=== PATIENT | female | born 1935 | race Caucasian/White ===

== ENCOUNTER → 2019-09-02 | Outpatient (CLI) | payer MEDICARE, OTHER ==
[2019-09-02 11:02] LABS: HCT 44.4 % (34.0-46.0); HGB 14.2 gm/dL (11.4-16.0); MCH 32.5 pg (25.0-35.0); MCV 101.5 fL (80.0-100.0); Mean Platelet Volume 7.8; Platelet Count 244 k/uL (150-450); RBC 4.37 m/uL (3.80-5.40); RDW 12.7 % (11.5-15.5); WBC 8.9 k/uL (3.8-10.6)
[2019-09-02 11:08] LABS: Appearance,Urine Clear (Clear); Bilirubin,Urine Negative (Negative); Blood,Urine Negative (Negative); Color,Urine Yellow; Glucose,Urine (UA) 4+ (Negative); Ketones,Urine Negative (Negative); Leukocyte Esterase,Urine Negative (Negative); Nitrite,Urine Negative (Negative); PH, Urine 5.5 (5.0-8.0); Protein,Urine Negative (Negative); Specific Gravity,Urine 1.018 (1.001-1.035); Urobilinogen,Urine <2.0 mg/dL (<2.0)
[2019-09-02 11:10] LABS: INR 1.1 (<1.2); Partial Thromboplastin Time 28.6 sec (22.0-30.0)
[2019-09-02 18:49] LABS: African American GFR (CKD) 94.2 (60.0-200.0); Albumin 4.2 g/dL (3.80-4.90); Albumin/Globulin Ratio 1.62 (1.60-3.17); Anion Gap 20.7 mmol/L (4.00-12.00); BUN/Creat Ratio 32.86 Ratio (12.00-20.00); Calcium 9.8 mg/dL (8.7-10.3); Carbon Dioxide 23.3 mmol/L (21.6-31.8); Globulin 2.6 g/dL (1.6-3.3); Non-African American GFR(CKD) 81.3 (60.0-200.0); Potassium 4.3 mmol/L (3.5-5.5); Total Protein 6.8 g/dL (6.2-8.2)
== END | disposition home or self-care (01) ==
LOC: LABWHC1 10:13
PROVIDERS: ATTEND Orthopaedic Surgery
DX: Z01.818 Encounter for other preprocedural examination (principal); Z01.812 Encounter for preprocedural laboratory examination
CPT/HCPCS: 36415; 80053; 81003; 85027; 85610; 85730; 87070; 87635

== ENCOUNTER 2019-09-05 11:14 | Day surgery (SDC) | payer MEDICARE ==
[2019-09-03 11:17] VITALS: BMI 27.1
[~2019-09-05 11:14] MED LIST: ACETAMINOPHEN TAB 500 MG TAB PO ONE; GABAPENTIN 300 MG CAP PO ONE; MELOXICAM 7.5 MG TAB PO ONE; ONDANSETRON 4 MG/2 ML VIAL IVP ONE; ROPIVACAINE 246.25 MG, EPINEPHrine 0.5 MG, KETOROLAC 30 MG, cloNIDine HCL/PF 80 MCG, WA... MISCELLANE ONE; TRANEXAMIC ACID 1,000 MG in SODIUM CHLORIDE 0.9% 100 ML IVPB ONE
[2019-09-05] MEDS ORDERED: LIDOCAINE 1% (10MG/ML) FOR IV START INTRADERMA PRN (11:22)
[2019-09-05] MEDS ORDERED: LACTATED RINGERS 1,000 ML IV SCH ×2 (11:22→14:30)
[2019-09-05] MEDS ORDERED: HYDROmorphone 0.5 MG/0.5 ML SYRINGE IVP PRN ×4 (11:22→14:30)
[2019-09-05] MEDS ORDERED: DEXAMETHASONE SOD PHOSPHATE 10 MG/ML 1 ML VIAL IV ONE (11:22)
[2019-09-05] MEDS ORDERED: fentaNYL (PF) 50 MCG/ML 2 ML AMP IV ONE (12:08)
[2019-09-05] MEDS ORDERED: MIDAZOLAM 2 MG/2 ML VIAL ONE (12:37)
[2019-09-05] MEDS ORDERED: SODIUM CHLORIDE 0.9% 100 ML BAG ONE (12:37)
[2019-09-05] MEDS ORDERED: diphenhydrAMINE 50 MG/ML 1 ML VIAL ONE (12:37)
[2019-09-05] MEDS ORDERED: TRANEXAMIC ACID 1,000 MG/10 ML VIAL ONE (12:37)
[2019-09-05] MEDS ORDERED: KETAMINE 10 MG/ML 20 ML VIAL ONE (12:37)
[2019-09-05] MEDS ORDERED: fentaNYL (PF) 50 MCG/ML 2 ML AMP ONE (12:37)
[2019-09-05] MEDS ORDERED: ceFAZolin 3,000 MG in SODIUM CHLORIDE 0.9% IRRIGATIO 3,000 ML IRRIGATION ONE (12:42)
--- NOTE | 2019-09-05 14:00 | P.OP ---
Date of Procedure: 09/05/19 Procedure(s) Performed: PREOPERATIVE DIAGNOSIS: Left hip femoral neck fracture POSTOPERATIVE DIAGNOSIS: Left hip femoral neck fracture OPERATION: Left hip cemented unipolar hemiarthroplasty. ANESTHESIA: Spinal ESTIMATED BLOOD LOSS: 100 ml. SCRAP SEPARATOR: Gilberto Kim PA-C (assistance with: patient positioning, retraction, exposure, hemostasis, leg positioning, implantation, irrigation, closure, dressing) COMPLICATIONS: None apparent. COMPONENTS IMPLANTED: Giana LDFx cemented femoral stem; unipolar femoral head; neck extension augments as needed. INDICATIONS: Chika is a 84-year-old female with a history of falling and sustaining a femoral neck fracture approximately 3 weeks ago. The fracture is a femoral neck fracture which is slightly impacted and although at the time of the office visit she was not having significant pain, during the course of nonweightbearing she has become progressively more symptomatic over the past week. I have recommended surgical treatment with a cemented unipolar hemiarthroplasty. I have discussed this procedure in detail and explained the potential risks and complications as being inclusive of, but not limited to: Bleeding, infection, scarring, discomfort, blood vessel and/or nerve damage, limb length inequality, gait disturbance, blood clot, pulmonary embolism, , and other risks. The consent form has been signed. PROCEDURE: After appropriate consent was obtained, the patient was taken to the operating room and placed in supine position. Spinal anesthetic was administered and after confirmation of adequate anesthesia, the patient was placed into the lateral decubitus position with the affected side up. Care was taken to make sure that all pressure points were adequately padded and a Cristo hip positioner was utilized for positioning. The hip was prepped and draped in the usual aseptic fashion using a combination of Chloraprep and alcohol. Ioban drape was used for the case and the patient received intravenous antibiotics and 1 gram intravenous tranexamic acid prior to the incision. The incision was created directly over the greater trochanter and carried slightly posteriorly for a posterior approach to the hip. The incision was then deepened down to subcutaneous tissue and fascia jose. Fascia jose was split in line with the incision and split proximally along the fibers of the gluteus rosa. The underlying fibers of the muscle were teased apart using finger dissection and bleeding vessels were picked up and coagulated. Retractor was then placed posteriorly consisting of a blunt [place]. Note was made of significant chronic bursitis of the trochanteric region without evidence of a formal abductor tendon tear. Scarred and degenerative tissue in this region was cleared using cautery. The short external rotators and capsule were exposed and good visualization of the attachment of the external rotators to the femur was established. The short external rotators and capsule were released using electrocautery from their femoral attachments. A hockey stick shaped incision was created in the capsule. Joint fluid and hemarthrosis was evacuated and the patient's hip was internally rotated to expose the fracture site. The femoral neck cut was created approximately 1 cm superior to the lesser trochanter using a reciprocating saw. The femoral head and neck fragment was removed and visualization and palpation of the acetabular vault showed intact hyaline cartilage with no bone exposure or significant degeneration. Attention was then directed back to the proximal femur. Retractors were placed around the proximal femur and box osteotome was used followed by canal finder and trochanteric reamer. Cylindrical reaming was performed. Progressive broaching was then performed starting with a #10 broach and progressing final size, in a position of 10-15 degrees anteversion. [place] anteversion was within 5 degrees of stem position. The final size broach had excellent fit and fill of the patient's metaphysis and diaphysis. Calcar planing was performed. Trial reduction was then performed starting with appropriately sized femoral head and various neck extensions to evaluate stability, limb length equality, and soft tissue tension. Once these parameters were satisfactory, the corresponding final components were then called for. Trial components were removed. The femoral canal was sized for the centralizer and cement plug. Once the cement plug had been inserted distal to the planned length of the femoral component, the canal was pulse lavaged and brushed to remove any unstable bone. It was then dried with a lap sponge. Cement was mixed under vacuum conditions to decrease porosity and inserted into a cement gun. Distal centralizer was placed onto the femoral component with a bit of cement. The cement was allowed to reach a slightly doughy consistency and then the canal was filled retrograde with the cement gun. Thumb pressurization was performed three times. The femoral component was then inserted with the previously determined degree of anteversion. Excess cement was removed before it hardened completely. The femoral head was then impacted onto the Baldwin taper. Blood and debris were removed from the acetabular socket and the hip was then reduced and checked for stability, limb length and soft tissue tension. These parameters were found to be satisfactory; the wound was then thoroughly irrigated with normal saline. Final hemostasis was obtained using electrocautery and IV tranexamic acid, 1 g given at the time of prepping and draping, and another 1 g given at the time of closure. Closure of the capsule was performed meticulously using #3 Vicryl suture. Four [id number] sutures were placed in the posterior capsule along with repair of the external rotators. The fascia jose was then repaired using combination of #3 Vicryl suture in interrupted fashion and Quill and running fashion. 2-0 Vicryl suture was used for the subcutaneous tissues and 3-0 Quill for the skin. Dermabond or Steri-Strips were then applied. The patient tolerated the procedure well. There were no complications and the wound bed was dry and there was no need for drain placement. Sterile dressing was then applied and the patient was carefully removed from the operating room table, placed on the stretcher and was taken to the recovery room in stable condition. Sponge and needle counts were correct.
[2019-09-05] MEDS ORDERED: hydrOXYzine PAMOATE 25 MG CAP PO PRN (14:30)
[2019-09-05] MEDS ORDERED: ONDANSETRON 4 MG/2 ML VIAL IVP PRN (14:30)
[2019-09-05] MEDS ORDERED: NALOXONE 0.4 MG/ML 1 ML VIAL IV PRN (14:30)
[2019-09-05] MEDS ORDERED: MAGNESIUM HYDROXIDE 2,400 MG/10 ML CUP PO PRN (14:30)
[2019-09-05] MEDS ORDERED: HYDROcodone/APAP 5-325MG 1 EACH TAB PO PRN (14:30)
--- NOTE | 2019-09-05 14:59 | XR ---
EXAMINATION TYPE: XR Hip Complete LT DATE OF EXAM: 09/05/2019 CLINICAL HISTORY: Left hip pain and osteoarthritis. TECHNIQUE: Single AP portable view of left hip is obtained immediately postoperatively. COMPARISON: None. FINDINGS: Metallic hardware from left hip arthroplasty is seen and appears satisfactory in alignment and position. There is evidence of recent surgery with subcutaneous gas noted laterally. IMPRESSION: Metallic hardware from left hip arthroplasty is satisfactory in position.
[2019-09-05] MEDS ORDERED: LACTATED RINGERS 1,000 ML IV ONE (15:12)
[2019-09-05 16:46] LABS: Basophils % (A) 0 %; Eosinophils # (A) 0.1 k/uL (0-0.7); Eosinophils % (A) 1 %; HCT 42.7 % (34.0-46.0); HGB 13.3 gm/dL (11.4-16.0); Hypochromasia Slight; Lymphocytes # (A) 0.9 k/uL (1.0-4.8); Lymphocytes % (A) 12 %; MCH 32.1 pg (25.0-35.0); MCHC 31.2 g/dL (31.0-37.0); MCV 102.8 fL (80.0-100.0); Macrocytosis Slight; Mean Platelet Volume 7.8; Monocytes # (A) 0.1 k/uL (0-1.0); Monocytes % (A) 2 %; Neutrophils # (A) 5.9 k/uL (1.3-7.7); Neutrophils % (A) 84 %; Platelet Count 251 k/uL (150-450); RBC 4.15 m/uL (3.80-5.40); RDW 12.5 % (11.5-15.5)
[2019-09-05] MEDS: HYDROcodone/APAP 5-325MG 1 EACH TAB PO PRN (19:06)
[2019-09-05 20:45] VITALS: RESP 18
[2019-09-05] MEDS ORDERED: SENNOSIDES-DOCUSATE SODIUM 1 EACH TAB PO SCH (21:00)
[2019-09-05] MEDS ORDERED: OXYBUTYNIN XL 5 MG TAB.ER.24 PO SCH (21:00)
[2019-09-05] MEDS ORDERED: ATORVASTATIN 20 MG TAB PO SCH (21:00)
[2019-09-05] MEDS ORDERED: MONTELUKAST 10 MG TAB PO SCH (21:00)
[2019-09-05] MEDS: APIXABAN 5 MG TAB PO SCH (21:09)
[2019-09-05] MEDS: MAGNESIUM OXIDE 400 MG TAB PO SCH (21:09)
[2019-09-05] MEDS: METOPROLOL TARTRATE 25 MG TAB PO SCH (21:09)
[2019-09-06] MEDS: HYDROcodone/APAP 5-325MG 1 EACH TAB PO PRN (02:09)
[2019-09-06 05:17] VITALS: BP 137/68; PULSE 83; TEMP 97.5
[2019-09-06] MEDS: APIXABAN 5 MG TAB PO SCH (07:23)
[2019-09-06] MEDS: METOPROLOL TARTRATE 25 MG TAB PO SCH (07:23)
[2019-09-06] MEDS: MAGNESIUM OXIDE 400 MG TAB PO SCH (07:24)
[2019-09-06] MEDS ORDERED: VIT A,C & E-LUTEIN-MINERALS 1 EACH TAB PO SCH (09:00)
--- NOTE | 2019-09-06 22:16 | P.DS ---
Providers Expected date of discharge: 09/06/19 Attending physician: Davin Garcia Primary care physician: Ondina Zamora Ross - Discharge Diagnosis(es) (1) S/P total hip arthroplasty Patient was admitted to the OR on 09/05/2019 to undergo a left total hip arth roplasty. She had failed conservative measures as an outpatient and desired to proceed with elective surgery after given informed consent. She underwent the above procedure which she tolerated well without complication. Postoperative hospital course has remained without complication. On day of discharge she is afebrile, vital signs stable, labs within acceptable ranges, tolerating by mouth meds and diet, voiding without difficulty, positive flatus, denies abdominal pain or calf pain, pain is controlled on oral pain medication and has no new complaints. Wound is benign, neurovascular status is intact, calf is soft and nontender, abdomen soft and nontender. Review of systems is negative for numbness, tingling, fever, chills, chest pain, shortness of breath, nausea, vomiting, dizziness, headaches, slurred speech or other Status: Acute Priority: Medium Procedures: Left BARB Patient Condition at Discharge: Good Plan - Discharge Summary Discharge Rx Participant: Yes New Discharge Prescriptions: New HYDROcodone/APAP 10-325MG [[place] 10] 1 each PO Q6H PRN #28 tab PRN Reason: Pain No Action Oxybutynin Chloride [Ditropan XL] 5 mg PO HS Montelukast [Singulair] 10 mg PO HS Atorvastatin [Lipitor] 20 mg PO HS Apixaban [Eliquis] 5 mg PO BID Vit C/E/Zn/Coppr/Lutein/Zeaxan [Preservision Areds 2 Softgel] 2 each PO DAILY Metoprolol Tartrate [Lopressor] 75 mg PO BID Magnesium Oxide [Magox 400] 400 mg PO BID Acetaminophen [Tylenol Arthritis] 1,300 mg PO BID Discharge Medication List Acetaminophen [Tylenol Arthritis] 1,300 mg PO BID 09/03/19 [History] Apixaban [Eliquis] 5 mg PO BID 09/03/19 [History] Atorvastatin [Lipitor] 20 mg PO HS 09/03/19 [History] Magnesium Oxide [Magox 400] 400 mg PO BID 09/03/19 [History] Metoprolol Tartrate [Lopressor] 75 mg PO BID 09/03/19 [History] Montelukast [Singulair] 10 mg PO HS 09/03/19 [History] Oxybutynin Chloride [Ditropan XL] 5 mg PO HS 09/03/19 [History] Vit C/E/Zn/Coppr/Lutein/Zeaxan [Preservision Areds 2 Softgel] 2 each PO DAILY 09/03/19 [History] HYDROcodone/APAP 10-325MG [[place]paugh 10] 1 each PO Q6H PRN #28 tab 09/05/19 [Rx] Follow up Appointment(s)/Referral(s): [facility], [NON-STAFF] - 1 Week Davin Garcia MD [STAFF PHYSICIAN] - 2 Weeks (Patient may follow-up with Dr. Garcia at [facility] in 2 weeks following discharge. ) Activity/Diet/Wound Care/Special Instructions: 1. Weight-bear as tolerated on Left lower extremity 2. May apply ice over the incision site for comfort as needed 3. Keep dressing over the right hip clean, dry, and intact 4. Keep dressing intact over the Left hip over the next 2 weeks 5. Avoid excessive activities with the Leftt lower extremity 6. Patient will resume Eliquis as previously prescribed for anticoagulation postoperatively 7. Patient should avoid previously prescribed Tylenol #3 and other narcotic pain medications while taking Alpaugh 10 mg/325 mg 8. Take medications as prescribed 9. If any questions or concerns, please call [facility] at [phone] Discharge Disposition: HOME WITH HOME HEALTH SERVICES
== END 2019-09-06 10:45 | disposition home health service (06) ==
LOC: OR 11:14 → 5NMEDONC 14:20 → OR 09-06 10:45
PROVIDERS: ATTEND Orthopaedic Surgery
DX: S72.002A Fracture of unspecified part of neck of left femur, initial encounter for closed fracture (principal); W19.XXXA Unspecified fall, initial encounter; M70.62 Trochanteric bursitis, left hip; I25.10 Atherosclerotic heart disease of native coronary artery without angina pectoris; E78.5 Hyperlipidemia, unspecified; I11.9 Hypertensive heart disease without heart failure; Z87.891 Personal history of nicotine dependence; H91.90 Unspecified hearing loss, unspecified ear; H53.8 Other visual disturbances; Z97.3 Presence of spectacles and contact lenses; F32.9 Major depressive disorder, single episode, unspecified; R45.0 Nervousness; I48.91 Unspecified atrial fibrillation; Z79.899 Other long term (current) drug therapy; Z90.49 Acquired absence of other specified parts of digestive tract; Z98.890 Other specified postprocedural states; Z83.3 Family history of diabetes mellitus; Z82.49 Family history of ischemic heart disease and other diseases of the circulatory system; Z79.01 Long term (current) use of anticoagulants; Z88.1 Allergy status to other antibiotic agents; Z88.0 Allergy status to penicillin; Z88.2 Allergy status to sulfonamides
CPT/HCPCS: 97162; 86900; 86901; 88305; 85025; 86850; 88311; 73502; 27236; C1776; C1713; J2250; J1200; J1100; J0690 ×3; J2405; J3010; J1170

== ENCOUNTER → 2023-02-21 | Outpatient (CLI) | payer MEDICARE ==
[2023-02-21 14:00] LABS: ALT 41 U/L (4-34); AST 48 U/L (14-36); African American GFR (CKD) >90 (>60 ml/min/1.73 sqM); Albumin 4.2 g/dL (3.5-5.0); Albumin/Globulin Ratio 1.4; Alkaline Phosphatase 94 U/L (38-126); Anion Gap 11 mmol/L; Blood Urea Nitrogen 18 mg/dL (7-17); Calcium 9.4 mg/dL (8.4-10.2); Carbon Dioxide 26 mmol/L (22-30); Chloride 100 mmol/L (98-107); Glucose 129 mg/dL (74-99); Non-African American GFR(CKD) 84 (>60 ml/min/1.73 sqM); Potassium 4.1 mmol/L (3.5-5.1); Sodium 137 mmol/L (137-145); Total Bilirubin 0.8 mg/dL (0.2-1.3); Total Protein 7.2 g/dL (6.3-8.2)
--- NOTE | 2023-02-21 15:05 | CT ---
EXAMINATION TYPE: CT chest w con CT DLP: 262.3 mGycm, Automated exposure control for dose reduction was used. DATE OF EXAM: 02/21/2023 2:46 PM COMPARISON: None available CLINICAL INDICATION:Female, 87 years old with history of R91.8 OTHER NONSPECIFIC ABNORMAL FINDING OF LUNG F; PHH, Abnormality found on lungs. TECHNIQUE: Multiple axial images were obtained through the chest following the administration of 100 cc of Isovue 300. . Coronal and sagittal reformats reviewed. FINDINGS: LUNGS/ PLEURA: No pleural effusion pneumothorax. Mild centrilobular emphysematous changes. Linear sca rring atelectasis within the lingula, right and lower lobes. No dominant mass with lobulated margins measuring 4.3 x 3.7 cm abutting the pleural surface in the superior segment of the right lower lobe ( series 4, image 34). AIRWAY: Patent and unremarkable.. HEART: The heart is mildly increased in size.. No pericardial effusion. Mild coronary artery calcific ations. MEDIASTINUM: Enlarged right hilar lymph nodes with largest measuring 1.4 cm (series 3, image 32) VASCULATURE: No aortic aneurysm. Atherosclerotic calcification of the aorta and its branches. MUSCULOSKELETAL: No acute osseous abnormalities. No aggressive osseous lesion. SOFT TISSUES/LYMPH NODES: Unremarkable. LOWER NECK: No significant findings. UPPER ABDOMEN: Several calcified granulomas within the spleen. Contrast demonstrated within both fidel l collecting systems on the delayed phase. Calcification identified within the left adrenal gland. Po stcholecystectomy changes IMPRESSION: 1. Right lower lobe superior segment 4.3 cm mass concerning for primary lung malignancy until proven otherwise. Additional right hilar enlarged lymph nodes suspicious for metastasis. Further evaluation with PET/CT is recommended. 2. Mild COPD changes.
== END | disposition home or self-care (01) ==
LOC: RADCTMAIN 12:37
PROVIDERS: ATTEND Family Medicine
DX: J44.9 Chronic obstructive pulmonary disease, unspecified (principal); R91.8 Other nonspecific abnormal finding of lung field; R59.0 Localized enlarged lymph nodes
CPT/HCPCS: 80053; 71260; Q9967

== ENCOUNTER → 2023-04-18 | Outpatient (CLI) | payer MEDICARE ==
[2023-04-18 13:05] LABS: African American GFR (CKD) >90 (>60 ml/min/1.73 sqM); Blood Urea Nitrogen 21 mg/dL (7-17); Non-African American GFR(CKD) 85 (>60 ml/min/1.73 sqM)
--- NOTE | 2023-04-18 14:01 | CT ---
EXAMINATION TYPE: CT brain w con DATE OF EXAM: 04/18/2023 COMPARISON: None. HISTORY: obs for mets. lung ca CT DLP: 1029.90 mGycm. Automated Exposure Control for Dose Reduction was Utilized. TECHNIQUE: CT scan of the head is performed with IV Contrast, patient injected with 100ml of Isovue 300. FINDINGS: Mild to moderate ventricular and sulcal prominence. Mild to moderate low attenuation in the periventricular white matter Postcontrast images show no suspicious enhancing intraparenchymal mass. Scleral calcification bilateral globes is present. The paranasal sinuses are grossly clear. No suspi cious opacification of the mastoid air cells. IMPRESSION: No abnormal enhancing intraparenchymal masses to suggest metastatic disease to the brain. MRI noted more sensitive than contrast-enhanced CT particularly for subcentimeter lesions.
== END | disposition home or self-care (01) ==
LOC: RADCTMAIN 12:28
PROVIDERS: ATTEND Internal Medicine Hematology & Oncology
DX: C34.31 Malignant neoplasm of lower lobe, right bronchus or lung (principal); I10 Essential (primary) hypertension; I48.91 Unspecified atrial fibrillation; M12.9 Arthropathy, unspecified
CPT/HCPCS: 82565; 84520; 70460; 36415; Q9967

== ENCOUNTER 2023-07-24 12:11 | Inpatient (IN) | payer MEDICARE ==
--- NOTE | 2023-07-24 12:59 | ED ---
General Adult HPI - General Chief complaint: Shortness of Breath Stated complaint: KATTY Time Seen by Provider: 07/24/23 12:42 Source: patient, family Mode of arrival: wheelchair Limitations: no limitations - History of Present Illness Initial comments: Dictation was produced using [email or web address] dictation software. please excuse any grammatical, word or spelling errors. 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 She most recently had chemo and radiation 3 weeks ago. Her oncologist is Dr. Arteaga. Patient for the last several days has been having worsening dyspnea. Denies any fever. She does have an intermittent cough. The ROS documented in this emergency department record has been reviewed and confirmed by me. Those systems with pertinent positive or negative responses have been documented in the HPI. All other systems are other negative and/or noncontributory. - Related Data Home Medications Medication Instructions Recorded Confirmed Acetaminophen [Tylenol Arthritis] 1,300 mg PO BID 09/03/19 06/20/23 Apixaban [Eliquis] 5 mg PO BID 09/03/19 06/20/23 Atorvastatin [Lipitor] 20 mg PO HS 09/03/19 06/20/23 Metoprolol Tartrate [Lopressor] 75 mg PO BID 09/03/19 06/20/23 Montelukast [Singulair] 10 mg PO HS 09/03/19 06/20/23 Vit C/E/Zn/Coppr/Lutein/Zeaxan 2 each PO DAILY 09/03/19 06/20/23 [Preservision Areds 2 Softgel] lisinopriL [Lisinopril] 100 mg PO BID 05/16/23 06/20/23 Allergies Allergy/AdvReac Type Severity Reaction Status Date / Time Penicillins Allergy Rash/Hives Verified 07/24/23 12:29 Sulfa (Sulfonamide Allergy red skin Verified 07/24/23 12:29 Antibiotics) Review of Systems ROS Statement: Those systems with pertinent positive or pertinent negative responses have been documented in the HPI. ROS Other: All systems not noted in ROS Statement are negative. Past Medical History Past Medical History: Atrial Fibrillation, Hypertension, Musculoskeletal Disorder Additional Past Medical History / Comment(s): fell August 01 & fx. left hip, didn't know it was fx. @first, A-fib for "years" per pt. History of Any Multi-Drug Resistant Organisms: None Reported Past Surgical History: Appendectomy, Section, Cholecystectomy, Hernia Repair, Hysterectomy, Orthopedic Surgery, Tonsillectomy Additional Past Surgical History / Comment(s): Partial hip replacement Past Anesthesia/Blood Transfusion Reactions: No Reported Reaction Past Psychological History: No Psychological Hx Reported Smoking Status: Former smoker Past Alcohol Use History: None Reported Past Drug Use History: None Reported - Past Family History Mother Brother(s) Family Medical History: Cancer General Exam - General Exam Comments Initial Comments: PHYSICAL EXAM: General Impression: Alert and oriented x3, not in acute distress HEENT: Normocephalic atraumatic, extra-ocular movements intact, pupils equal and reactive to light bilaterally, mucous membranes moist. Cardiovascular: Heart regular rate and rhythm Chest: Able to complete full sentences, no retractions, no tachypnea Abdomen: abdomen soft, non-tender, non-distended, no organomegaly Musculoskeletal: Pulses present and equal in all extremities, no peripheral edema Motor: no focal deficits noted Neurological: CN II-XII grossly intact, no focal motor or sensory deficits noted Skin: Intact with no visualized rashes Psych: Normal affect and mood Limitations: no limitations Course Vital Signs 07/24/23 12:26 Temperature 97.5 F L Pulse Rate 95 Respiratory 20 Rate Blood Pressure 116/65 O2 Sat by Pulse 98 Oximetry EKG Findings - EKG Comments: EKG Findings:: My EKG interpretation: Ventricular rate 78, A-fib, QRS 114, QTc 455. No NV prolongation, no QTC prolongation. No EKG for comparison. There are deep inverted T waves in the lateral precordial leads.. Overall, this EKG is unremarkable Medical Decision Making - Medical Decision Making Was pt. sent in by a medical professional or institution (, PA, [employer], urgent care, hospital, or jail...) When possible be specific @ -No Did you speak to anyone other than the patient for history (EMS, parent, family, police, friend...)? What history was obtained from this source @ -No Did you review nursing and triage notes (agree or disagree)? Why? @ -I reviewed and agree with nursing and triage notes Were old charts reviewed (outside hosp., previous admission, EMS record, old EKG, old radiological studies, urgent care reports/EKG's, jail records)? Report findings @ -No old charts were reviewed Differential Diagnosis (chest pain, altered mental status, abdominal pain women, abdominal pain men, vaginal bleeding, musculoskeletal, weakness, fever, dyspnea, syncope, headache, dizziness, GI bleed, back pain, seizure, CVA, palpatations, mental health)? @ -Differential Dyspnea: Coronary syndrome, arrhythmia, tamponade, asthma, COPD, pulmonary embolism, pneumonia, pneumothorax, pulmonary effusion, anaphylaxis, diabetic ketoacidosis, flailed chest, pulmonary contusion, diaphragmatic rupture, anemia, neuromuscular, this is not meant to be an all-inclusive list. EKG interpreted by me (3pts min.). @ -See above X-rays interpreted by me (1pt min.). @ -Chest x-ray shows heart failure CT interpreted by me (1pt min.). @ -None done U/S interpreted by me (1pt. min.). @ -None done What testing was considered but not performed or refused? (CT, X-rays, U/S, labs)? Why? @ -None What meds were considered but not given or refused? Why? @ -None Did you discuss the management of the patient with other professionals (professionals i.e. , PA, [employer], lab, RT, psych nurse, social media coordinator, corrections nurse, teacher, gift officer, behavioral health case manager)? Give summary @ -Case discussed with hospitalist for admission Was smoking cessation discussed for >3mins.? @ -No Was critical care preformed (if so, how long)? @ -No Were there social determinants of health that impacted care today? How? (H omelessness, low income, unemployed, alcoholism, drug addiction, transportation, low edu. Level, literacy, decrease access to med. care, prison, rehab)? @ -No Was there de-escalation of care discussed even if they declined (Discuss DNR or withdrawal of care, Hospice)? DNR status @ -No What co-morbidities impacted this encounter? (DM, HTN, Smoking, COPD, CAD, Cancer, CVA, ARF, Chemo, Hep., AIDS, mental health diagnosis, sleep apnea, morbid obesity)? @ -None Was patient admitted / discharged? Hospital course, mention meds given and route, prescriptions, significant lab abnormalities, going to OR and other pertinent info. @ -87-year-old female presents to the emergency department for dyspnea. Vital signs upon arrival are within acceptable limits. Patient has history of small cell lung cancer. Laboratory evaluation obtained. She does have a new anemia with microcytosis. She does complain of intermittent episodes of black stool. Patient does take Eliquis. Patient given Protonix. INR is 2.0. Metabolic panel shows hypomagnesemia 1.0. N brain atretic peptide is 19,000. Chest x-ray shows heart failure. Patient given Lasix. Patient will be admitted for heart failure treatment and evaluation. Cardiology consulted. General surgery consulted for GI bleed and oncology consulted for cancer. Undiagnosed new problem with uncertain prognosis? @ -No Drug Therapy requiring intensive monitoring for toxicity (Heparin, Nitro, Insulin, Cardizem)? @ -No Were any procedures done? @ -No Diagnosis/symptom? Acute, or Chronic, or Acute on Chronic? Uncomplicated (without systemic symptoms) or Complicated (systemic symptoms)? @ -Cardiomyopathy Side effects of treatment? @ -No Exacerbation, Progression, or Severe Exacerbation? @ -No Poses a threat to life or bodily function? How? (Chest pain, [place], [place], pneumonia, PE, COPD, DKA, ARF, appy, cholecystitis, CVA, Diverticulitis, Homicidal, Suicidal, threat to staff... and all critical care pts) @ -yes - Lab Data Result diagrams: 07/24/23 13:10 07/24/23 13:10 Lab Results 07/24/23 07/24/23 07/24/23 Range/Units 13:10 13:10 13:10 WBC 6.5 (3.8-10.6) k/uL RBC 2.37 L (3.80-5.40) m/uL Hgb 8.4 L D (11.4-16.0) gm/dL Hct 26.0 L (34.0-46.0) % MCV 110.0 H (80.0-100.0) fL MCH 35.3 H (25.0-35.0) pg MCHC 32.1 (31.0-37.0) g/dL RDW 15.1 (11.5-15.5) % Plt Count 161 D (150-450) k/uL MPV 9.0 Neutrophils % 77 % Lymphocytes % 14 % Monocytes % 5 % Eosinophils % 1 % Basophils % 0 % Neutrophils # 5.1 (1.3-7.7) k/uL Lymphocytes # 0.9 L (1.0-4.8) k/uL Monocytes # 0.3 (0-1.0) k/uL Eosinophils # 0.1 (0-0.7) k/uL Basophils # 0.0 (0-0.2) k/uL Manual Slide Review Performed Hypochromasia Slight Poikilocytosis Slight Macrocytosis Marked A PT 19.9 H (10.0-12.5) sec INR 2.0 H (<1.2) APTT 33.1 H (22.0-30.0) sec Sodium 137 (137-145) mmol/L Potassium 5.8 H (3.5-5.1) mmol/L Chloride 109 H (98-107) mmol/L Carbon Dioxide 22 (22-30) mmol/L Anion Gap 6 mmol/L BUN 45 H (7-17) mg/dL Creatinine 0.54 (0.52-1.04) mg/dL Est GFR (CKD-EPI)AfAm >90 (>60 ml/min/1.73 sqM) Est GFR (CKD-EPI)NonAf 86 (>60 ml/min/1.73 sqM) Glucose 102 H (74-99) mg/dL Plasma Lactic Acid Arron (0.7-2.0) mmol/L Calcium 8.3 L (8.4-10.2) mg/dL Magnesium 1.0 L (1.6-2.3) mg/dL Total Bilirubin 0.8 (0.2-1.3) mg/dL AST 28 (14-36) U/L ALT 16 (4-34) U/L Alkaline Phosphatase 87 (38-126) U/L Troponin I (0.000-0.034) ng/mL NT-Pro-B Natriuret Pep 52042 pg/mL Total Protein 5.1 L (6.3-8.2) g/dL Albumin 2.5 L (3.5-5.0) g/dL 07/24/23 07/24/23 Range/Units 13:10 13:10 WBC (3.8-10.6) k/uL RBC (3.80-5.40) m/uL Hgb (11.4-16.0) gm/dL Hct (34.0-46.0) % MCV (80.0-100.0) fL MCH (25.0-35.0) pg MCHC (31.0-37.0) g/dL RDW (11.5-15.5) % Plt Count (150-450) k/uL MPV Neutrophils % % Lymphocytes % % Monocytes % % Eosinophils % % Basophils % % Neutrophils # (1.3-7.7) k/uL Lymphocytes # (1.0-4.8) k/uL Monocytes # (0-1.0) k/uL Eosinophils # (0-0.7) k/uL Basophils # (0-0.2) k/uL Manual Slide Review Hypochromasia Poikilocytosis Macrocytosis PT (10.0-12.5) sec INR (<1.2) APTT (22.0-30.0) sec Sodium (137-145) mmol/L Potassium (3.5-5.1) mmol/L Chloride (98-107) mmol/L Carbon Dioxide (22-30) mmol/L Anion Gap mmol/L BUN (7-17) mg/dL Creatinine (0.52-1.04) mg/dL Est GFR (CKD-EPI)AfAm (>60 ml/min/1.73 sqM) Est GFR (CKD-EPI)NonAf (>60 ml/min/1.73 sqM) Glucose (74-99) mg/dL Plasma Lactic Acid Arron 1.9 (0.7-2.0) mmol/L Calcium (8.4-10.2) mg/dL Magnesium (1.6-2.3) mg/dL Total Bilirubin (0.2-1.3) mg/dL AST (14-36) U/L ALT (4-34) U/L Alkaline Phosphatase (38-126) U/L Troponin I <0.012 (0.000-0.034) ng/mL NT-Pro-B Natriuret Pep pg/mL Total Protein (6.3-8.2) g/dL Albumin (3.5-5.0) g/dL Disposition Clinical Impression: Congestive heart failure Disposition: ADMITTED IP TO THIS HOSP Condition: Fair Referrals: Ondina Engle MD [Primary Care Provider] - 1-2 days Decision Time: 14:44
[2023-07-24 13:35] LABS: Basophils % (A) 0 %; Eosinophils # (A) 0.1 k/uL (0-0.7); Eosinophils % (A) 1 %; Hypochromasia Slight; Lymphocytes # (A) 0.9 k/uL (1.0-4.8); Lymphocytes % (A) 14 %; MCH 35.3 pg (25.0-35.0); MCHC 32.1 g/dL (31.0-37.0); Macrocytosis Marked; Monocytes # (A) 0.3 k/uL (0-1.0); Monocytes % (A) 5 %; Neutrophils # (A) 5.1 k/uL (1.3-7.7); Neutrophils % (A) 77 %; Poikilocytosis Slight; RBC 2.37 m/uL (3.80-5.40); RDW 15.1 % (11.5-15.5); WBC 6.5 k/uL (3.8-10.6)
--- NOTE | 2023-07-24 13:38 | XR ---
EXAMINATION TYPE: XR chest 2V DATE OF EXAM: 07/24/2023 COMPARISON: NONE HISTORY: Shortness of breath TECHNIQUE: Frontal and lateral views of the chest are obtained. FINDINGS: Scattered senescent parenchymal changes noted. Hyperinflation compatible with COPD. Cardiomegaly with perihilar hazy density may reflect mild changes of congestive failure. Infiltrates of other etiology not excluded and clinical correlation as well as appropriate follow-up advised. Mediastinal structures are stable and grossly unremarkable. No evidence for hilar prominence. Degenerative changes dorsal spine. IMPRESSION: 1. Cardiomegaly with perihilar hazy density may reflect mild changes of congestive failure. Infiltrat es of other etiology not excluded and clinical correlation as well as appropriate follow-up advised.
[2023-07-24 13:49] LABS: HGB 8.4 gm/dL (11.4-16.0); Partial Thromboplastin Time 33.1 sec (22.0-30.0); Platelet Count 161 k/uL (150-450); Prothrombin Time 19.9 sec (10.0-12.5)
[2023-07-24 14:17] LABS: ALT 16 U/L (4-34); AST 28 U/L (14-36); African American GFR (CKD) >90 (>60 ml/min/1.73 sqM); Albumin 2.5 g/dL (3.5-5.0); Alkaline Phosphatase 87 U/L (38-126); Anion Gap 6 mmol/L; Blood Urea Nitrogen 45 mg/dL (7-17); Calcium 8.3 mg/dL (8.4-10.2); Carbon Dioxide 22 mmol/L (22-30); Chloride 109 mmol/L (98-107); Glucose 102 mg/dL (74-99); Non-African American GFR(CKD) 86 (>60 ml/min/1.73 sqM); Potassium 5.8 mmol/L (3.5-5.1); Sodium 137 mmol/L (137-145); Total Bilirubin 0.8 mg/dL (0.2-1.3); Total Protein 5.1 g/dL (6.3-8.2)
[2023-07-24 14:26] LABS: NT-Pro-B-Type Natriuretic Pept 19400 pg/mL
--- NOTE | 2023-07-24 15:42 | P.GSCN ---
History of Present Illness Consult date: 07/24/23 History of present illness: CHIEF COMPLAINT: Shortness of breath HISTORY OF PRESENT ILLNESS: This is a 87-year-old female with a known history of small cell lung cancer stage III with recent chemo and radiation treatment 3 weeks ago. She presents to the hospital with complaints of worsening shortness of breath over the last several days. Patient also reports having a cough. Sometimes the cough does induce vomiting. She also reports having black stools. She had 1 black stool Swapnil and a small black stool yesterday. She also reports about a week ago she had a black stool with some red noted in it. She is on Eliquis for her A-fib and INR is 2.0. She is found to be in CHF exacerbation is currently on IV Lasix. She is on 3 L of oxygen. She does not usually wear oxygen at home. Patient is never had a EGD. She denies any abdominal pain. Last colonoscopy was 5 years ago and reported as normal. Hemoglobin on admission 8.4 hemoglobin in June was 11.2 PAST MEDICAL HISTORY: Small cell lung cancer, Atrial Fibrillation, Hypertension, Musculoskeletal Disorder PAST SURGICAL HISTORY: Appendectomy, Section, Cholecystectomy, Hernia Repair, Hysterectomy, Orthopedic Surgery, Tonsillectomy MEDICATIONS: See below ALLERGIES: See below SOCIAL HISTORY: No illicit drug use. REVIEW OF SYSTEMS: CONSTITUTIONAL: Denies fever or chills. HEENT: Denies blurred vision, vision changes, or eye pain. Denies hemoptysis CARDIOVASCULAR: Denies chest pain or pressure. RESPIRATORY: No shortness of breath. GASTROINTESTINAL: See HPI for pertinent findings HEMATOLOGIC: Denies bleeding disorders. GENITOURINARY: Denies any blood in urine or increased urinary frequency. SKIN: Denies pruitis. Denies rash. PHYSICAL EXAM: VITAL SIGNS: Reviewed GENERAL: Well-developed in no acute distress. HEENT: No sclera icterus. Extraocular movements grossly intact. Moist buccal mucosa. Head is atraumatic, normocephalic. No nasal drainage. ABDOMEN: Soft. Nondistended. Nontender NEUROLOGIC: Alert and oriented. Cranial nerves II through XII grossly intact. LABORATORY DATA: WBC 6.5 hemoglobin 8.4 platelets 161 Hemoglobin in June 2023 was 11.2 INR 2.0 Sodium is 137 potassium is 5.5 creatinine 0.54 Magnesium 1.0 BNP elevated 19,400 Troponin negative Albumin 2.5 IMAGING: Chest x-ray cardiomegaly with perihilar hazy density may reflect mild changes of CHF infiltrate or other etiology not excluded ASSESSMENT: 1. Shortness of breath 2. Anemia with melanotic stools 3. A-fib anticoagulated with Eliquis 4. History of small cell lung cancer with recent chemo and radiation treatment 3 weeks ago 5. Acute CHF exacerbation 6. Hyperkalemia 7. Hypomagnesemia PLAN: -Protonix 40 mg IV twice a day added -Continue to monitor hemoglobin -Continue to monitor for any signs or symptoms of bleeding -Continue to correct electrolyte abnormalities -Continue treatment for CHF exacerbation -Hold Eliquis -Further recommendations forthcoming regarding endoscopies Thank you for this consultation Physician Medical Device Sales Representative note has been reviewed by physician. Signing provider agrees with the documented findings, assessment, and plan of care. Past Medical History Past Medical History: Atrial Fibrillation, Hypertension, Musculoskeletal Disorder Additional Past Medical History / Comment(s): fell August 01 & fx. left hip, didn't know it was fx. @first, A-fib for "years" per pt. History of Any Multi-Drug Resistant Organisms: None Reported Past Surgical History: Appendectomy, Section, Cholecystectomy, Hernia Repair, Hysterectomy, Orthopedic Surgery, Tonsillectomy Additional Past Surgical History / Comment(s): Partial hip replacement Past Anesthesia/Blood Transfusion Reactions: No Reported Reaction Past Psychological History: No Psychological Hx Reported Smoking Status: Former smoker Past Alcohol Use History: None Reported Past Drug Use History: None Reported - Past Family History Mother Brother(s) Family Medical History: Cancer Medications and Allergies Home Medications Medication Instructions Recorded Confirmed Type Acetaminophen [Tylenol Arthritis] 1,300 mg PO BID 09/03/19 07/24/23 History Apixaban [Eliquis] 5 mg PO BID 09/03/19 07/24/23 History Montelukast [Singulair] 10 mg PO HS 09/03/19 07/24/23 History Atorvastatin [Lipitor] 10 mg PO HS 07/24/23 07/24/23 History Meclizine [Antivert] 12.5 mg PO BID PRN 07/24/23 07/24/23 History Metoprolol Tartrate [Lopressor] 100 mg PO BID 07/24/23 07/24/23 History Oxybutynin ER [Ditropan XL] 10 mg PO DAILY 07/24/23 07/24/23 History Allergies Allergy/AdvReac Type Severity Reaction Status Date / Time Penicillins Allergy Rash/Hives Verified 07/24/23 14:49 Sulfa (Sulfonamide Allergy Rash/Hives Verified 07/24/23 14:49 Antibiotics) Surgical - Exam Vital Signs Temp Pulse Resp BP Pulse Ox 97.5 F L 95 20 116/65 98 07/24/23 12:26 07/24/23 12:26 07/24/23 12:26 07/24/23 12:26 07/24/23 12:26 Results - Labs 07/24/23 13:10 07/24/23 13:10 Abnormal Lab Results - Last 24 Hours (Table) 07/24/23 07/24/23 07/24/23 Range/Units 13:10 13:10 13:10 RBC 2.37 L (3.80-5.40) m/uL Hgb 8.4 L D (11.4-16.0) gm/dL Hct 26.0 L (34.0-46.0) % MCV 110.0 H (80.0-100.0) fL MCH 35.3 H (25.0-35.0) pg Lymphocytes # 0.9 L (1.0-4.8) k/uL Macrocytosis Marked A PT 19.9 H (10.0-12.5) sec INR 2.0 H (<1.2) APTT 33.1 H (22.0-30.0) sec Potassium 5.8 H (3.5-5.1) mmol/L Chloride 109 H (98-107) mmol/L BUN 45 H (7-17) mg/dL Glucose 102 H (74-99) mg/dL Calcium 8.3 L (8.4-10.2) mg/dL Magnesium 1.0 L (1.6-2.3) mg/dL Total Protein 5.1 L (6.3-8.2) g/dL Albumin 2.5 L (3.5-5.0) g/dL Diabetes panel 07/24/23 Range/Units 13:10 Sodium 137 (137-145) mmol/L Potassium 5.8 H (3.5-5.1) mmol/L Chloride 109 H (98-107) mmol/L Carbon Dioxide 22 (22-30) mmol/L BUN 45 H (7-17) mg/dL Creatinine 0.54 (0.52-1.04) mg/dL Glucose 102 H (74-99) mg/dL Calcium 8.3 L (8.4-10.2) mg/dL AST 28 (14-36) U/L ALT 16 (4-34) U/L Alkaline Phosphatase 87 (38-126) U/L Total Protein 5.1 L (6.3-8.2) g/dL Albumin 2.5 L (3.5-5.0) g/dL Calcium panel 07/24/23 Range/Units 13:10 Calcium 8.3 L (8.4-10.2) mg/dL Albumin 2.5 L (3.5-5.0) g/dL Pituitary panel 07/24/23 Range/Units 13:10 Sodium 137 (137-145) mmol/L Potassium 5.8 H (3.5-5.1) mmol/L Chloride 109 H (98-107) mmol/L Carbon Dioxide 22 (22-30) mmol/L BUN 45 H (7-17) mg/dL Creatinine 0.54 (0.52-1.04) mg/dL Glucose 102 H (74-99) mg/dL Calcium 8.3 L (8.4-10.2) mg/dL Adrenal panel 07/24/23 Range/Units 13:10 Sodium 137 (137-145) mmol/L Potassium 5.8 H (3.5-5.1) mmol/L Chloride 109 H (98-107) mmol/L Carbon Dioxide 22 (22-30) mmol/L BUN 45 H (7-17) mg/dL Creatinine 0.54 (0.52-1.04) mg/dL Glucose 102 H (74-99) mg/dL Calcium 8.3 L (8.4-10.2) mg/dL Total Bilirubin 0.8 (0.2-1.3) mg/dL AST 28 (14-36) U/L ALT 16 (4-34) U/L Alkaline Phosphatase 87 (38-126) U/L Total Protein 5.1 L (6.3-8.2) g/dL Albumin 2.5 L (3.5-5.0) g/dL
[2023-07-24] MEDS: FUROSEMIDE 10 MG/ML 4 ML VIAL IV STA (15:47)
[2023-07-24] MEDS: MAGNESIUM SULFATE-D5W PMX 1 GM in DEXTROSE/WATER 1 100ML.BAG IVPB SCH (16:23)
[2023-07-24] MEDS: PANTOPRAZOLE 40 MG/10 ML VIAL IVP STA (16:23)
[2023-07-24] MEDS: ACETAMINOPHEN TAB 500 MG TAB PO PRN (18:43)
--- NOTE | 2023-07-24 20:34 | P.HPIM ---
History of Present Illness H&P Date: 07/24/23 Chief Complaint: Short of breath This is a pleasant 87-year-old patient who follows with Dr. Ondina Engle. Chronic stable medical condition include atrial fibrillation, essential hypertension, osteoarthritis. Also has a diagnosis of small cell lung cancer stage III received chemotherapy radiation treatment about 3 weeks ago[address] with [address]. Arteaga oncologist. She is presented here with worsening shortness of breath. Especially more so in the last 2 days. Decreased energy. Appetite is okay. She had black stool yesterday. Also some black stool about a week ago. She does get Eliquis for A-fib. Does not have any oxygen at home patient in the ER is accompanied by her son Jesus. Denies any edema. Review of systems: GEN.: Decreased appetite tired no fever no chills EYES: None HEENT: None NECK: None RESPIRATORY: As above e CARDIOVASCULAR: As above GASTROINTESTINAL: No abdominal pain GENITOURINARY: None MUSCULOSKELETAL: Joint pains LYMPHATICS: None HEMATOLOGICAL: None PSYCHIATRY: None NEUROLOGICAL: None Social history: Lives alone. Son lives nearby. Smoked less than a pack a day for 40 years stopped over 20 years ago. Does drink a [place] daily. Physical examination: VITAL SIGNS: 97.5, 90, 20, 120/65, 98% on 3 L GENERAL: BMI 20.3,. Reclining in bed a bit short of breath tired EYES: [Pupils equal. Conjunctiva pale. HEENT: External appearance of nose and ears normal, oral cavity grossly normal. NECK: JVD possibly raised; masses not palpable. HEART: Heart sounds regular; no edema. LUNGS: Respiratory rate increased l decreased breath sounds no wheezing. ABDOMEN: Soft, nontender, liver spleen not palpable, no masses palpable. PSYCH: Alert and oriented x3; mood and affect aniyah l. MUSCULOSKELETAL:No Clubbing/cyanosis;muscles-grossly intact. OA NEUROLOGICAL: Cranial nerves grossly intact; no facial asymmetry, power and sensation grossly intact. LYMPHATICS: No lymph nodes palpable in the axilla and neck INVESTIGATIONS, reviewed in the clinical context: July 24, 2023: White count 6.5 hemoglobin 8.4 platelets 161 sodium 137 potassium 5.8 BUN 45 creatinine 0.54 proBNP [id number] Stool occult blood positive EKG tracing personally reviewed by me-atrial fibrillation. Rate 78. Abnormal T waves in inferior lateral leads Chest x-ray film personally reviewed by me-cardiomegaly. Prominent hilum/pulmonary artery Previous investigations CT chest with contrast [February 2023] right lower lobe superior segment 4.3 cm mass. Additional right hilar enlarged lymph nodes suspicious for metastasis. - Assessment and plan: -Acute CHF exacerbation. EF not known. IV Lasix 40 mg every 12 2D echocardiogram. Telemetry. -Acute COPD exacerbation in a prior smoker DuoNeb 4 times daily. Pulmicort nebulizer 1 mg twice daily -Small cell lung cancer stage III 3 weeks ago received chemotherapy and radiation treatment. Being followed by Dr. Lazaro Arteaga oncology. -Acute GI bleed in a patient is on Eliquis Eliquis held. General surgery consulted as GI services not available in the hospital Follow H&H -Persistent atrial fibrillation, rate controlled Lopressor 100 mg twice daily. Hold Eliquis because of GI bleed -Primary osteoarthritis Tylenol as needed -Urinary incontinence Ditropan XL 10 mg a day -Power of traffic law attorney: Son Jesus, and daughter Naina -DNR Consultation to cardiology. Oncology. General surgery care was discussed with the patient and son at the bedside. Advance care planning [July 24, 2023] Patient is medical condition overall diagnosis end-of-life care was discussed with the patient present ultrasound. Questions answered. She has decided to proceed with DNR. Time spent about 25 minutes Past Medical History Past Medical History: Atrial Fibrillation, Hypertension, Musculoskeletal Disorder Additional Past Medical History / Comment(s): fell August 01 & fx. left hip, didn't know it was fx. @first, A-fib for "years" per pt. History of Any Multi-Drug Resistant Organisms: None Reported Past Surgical History: Appendectomy, Section, Cholecystectomy, Hernia Repair, Hysterectomy, Orthopedic Surgery, Tonsillectomy Additional Past Surgical History / Comment(s): Partial hip replacement Past Anesthesia/Blood Transfusion Reactions: No Reported Reaction Past Psychological History: No Psychological Hx Reported Smoking Status: Former smoker Past Alcohol Use History: None Reported Past Drug Use History: None Reported - Past Family History Mother Brother(s) Family Medical History: Cancer Medications and Allergies Home Medications Medication Instructions Recorded Confirmed Type Acetaminophen [Tylenol Arthritis] 1,300 mg PO BID 09/03/19 07/24/23 History Apixaban [Eliquis] 5 mg PO BID 09/03/19 07/24/23 History Montelukast [Singulair] 10 mg PO HS 09/03/19 07/24/23 History Atorvastatin [Lipitor] 10 mg PO HS 07/24/23 07/24/23 History Meclizine [Antivert] 12.5 mg PO BID PRN 07/24/23 07/24/23 History Metoprolol Tartrate [Lopressor] 100 mg PO BID 07/24/23 07/24/23 History Oxybutynin ER [Ditropan XL] 10 mg PO DAILY 07/24/23 07/24/23 History Allergies Allergy/AdvReac Type Severity Reaction Status Date / Time Penicillins Allergy Rash/Hives Verified 07/24/23 14:49 Sulfa (Sulfonamide Allergy Rash/Hives Verified 07/24/23 14:49 Antibiotics) Physical Exam Vitals: Vital Signs Temp Pulse Resp BP Pulse Ox 07/24/23 18:00 88 20 100/76 100 07/24/23 14:57 20 07/24/23 14:55 90 20 120/65 98 07/24/23 14:31 96 20 127/89 98 07/24/23 13:31 92 20 116/71 99 07/24/23 12:31 94 16 123/82 99 07/24/23 12:26 97.5 F L 95 20 116/65 98 Intake and Output 07/24/23 07/24/23 07/24/23 06:59 14:59 22:59 Output Total 950 Balance -950 Output: Urine 950 2-way Urethral 950 Other: Weight 55.338 kg Results CBC & Chem 7: 07/24/23 13:10 07/24/23 13:10 Labs: Abnormal Lab Results - Last 24 Hours (Table) 07/24/23 07/24/23 07/24/23 Range/Units 13:10 13:10 13:10 RBC 2.37 L (3.80-5.40) m/uL Hgb 8.4 L D (11.4-16.0) gm/dL Hct 26.0 L (34.0-46.0) % MCV 110.0 H (80.0-100.0) fL MCH 35.3 H (25.0-35.0) pg Lymphocytes # 0.9 L (1.0-4.8) k/uL Macrocytosis Marked A PT 19.9 H (10.0-12.5) sec INR 2.0 H (<1.2) APTT 33.1 H (22.0-30.0) sec Potassium 5.8 H (3.5-5.1) mmol/L Chloride 109 H (98-107) mmol/L BUN 45 H (7-17) mg/dL Glucose 102 H (74-99) mg/dL Calcium 8.3 L (8.4-10.2) mg/dL Magnesium 1.0 L (1.6-2.3) mg/dL Total Protein 5.1 L (6.3-8.2) g/dL Albumin 2.5 L (3.5-5.0) g/dL Stool Occult Blood (Negative) 07/24/23 Range/Units 16:30 RBC (3.80-5.40) m/uL Hgb (11.4-16.0) gm/dL Hct (34.0-46.0) % MCV (80.0-100.0) fL MCH (25.0-35.0) pg Lymphocytes # (1.0-4.8) k/uL Macrocytosis PT (10.0-12.5) sec INR (<1.2) APTT (22.0-30.0) sec Potassium (3.5-5.1) mmol/L Chloride (98-107) mmol/L BUN (7-17) mg/dL Glucose (74-99) mg/dL Calcium (8.4-10.2) mg/dL Magnesium (1.6-2.3) mg/dL Total Protein (6.3-8.2) g/dL Albumin (3.5-5.0) g/dL Stool Occult Blood Positive H (Negative)
[2023-07-24] MEDS ORDERED: PROCHLORPERAZINE 5 MG TAB PO PRN (20:40)
[2023-07-24] MEDS ORDERED: NALOXONE 0.4 MG/ML 1 ML VIAL IV PRN (20:40)
[2023-07-24] MEDS ORDERED: MELATONIN 3 MG TABLET PO PRN (20:40)
[2023-07-24] MEDS ORDERED: LACTULOSE 20 GM/30 ML CUP PO PRN (20:40)
[2023-07-24] MEDS ORDERED: CALCIUM CARBONATE 500 MG CHEWABLE PO PRN (20:40)
[2023-07-24] MEDS: MONTELUKAST 10 MG TAB PO SCH (21:29)
[2023-07-24] MEDS: ATORVASTATIN 10 MG TAB PO SCH (21:29)
[2023-07-24] MEDS: METOPROLOL TARTRATE 50 MG TAB PO SCH (21:29)
[2023-07-24] MEDS: FUROSEMIDE 10 MG/ML 4 ML VIAL IV SCH (21:30)
[2023-07-24] MEDS: ACETAMINOPHEN TAB 500 MG TAB PO SCH (21:30)
[2023-07-24] MEDS: PANTOPRAZOLE 40 MG/10 ML VIAL IVP SCH (21:37)
[2023-07-24] MEDS: BUDESONIDE 1 MG/2 ML NEBU INHALATION SCH (21:48)
[2023-07-24] MEDS: IPRATROPIUM-ALBUTEROL 3 ML NEB INHALATION SCH (21:48)
[2023-07-25] MEDS: LORazepam 0.5 MG TAB PO PRN (01:30)
[2023-07-25 06:50] LABS: Hypochromasia Moderate; MCH 35.4 pg (25.0-35.0); MCHC 31.6 g/dL (31.0-37.0); Macrocytosis Marked; Platelet Count 137 k/uL (150-450); Poikilocytosis Slight; RBC 1.67 m/uL (3.80-5.40); RDW 15.5 % (11.5-15.5); WBC 6.7 k/uL (3.8-10.6)
[2023-07-25 07:01] LABS: African American GFR (CKD) >90 (>60 ml/min/1.73 sqM); Anion Gap 7 mmol/L; Blood Urea Nitrogen 47 mg/dL (7-17); Calcium 8.1 mg/dL (8.4-10.2); Carbon Dioxide 22 mmol/L (22-30); Chloride 106 mmol/L (98-107); Glucose 94 mg/dL (74-99); Magnesium 1.5 mg/dL (1.6-2.3); Non-African American GFR(CKD) 80 (>60 ml/min/1.73 sqM); Potassium 4.4 mmol/L (3.5-5.1); Sodium 135 mmol/L (137-145)
[2023-07-25 07:04] LABS: INR 1.8 (<1.2); Prothrombin Time 18.1 sec (10.0-12.5)
[2023-07-25 07:22] LABS: HGB 5.9 gm/dL (11.4-16.0)
[2023-07-25 07:23] LABS: HCT 18.7 % (34.0-46.0)
[2023-07-25] MEDS: OXYBUTYNIN 10 MG TAB.ER.24 PO SCH (08:24)
[2023-07-25] MEDS: MAGNESIUM OXIDE 400 MG TAB PO SCH (08:24)
--- NOTE | 2023-07-25 11:44 | CA ---
Transthoracic Echo Report Name: Nataly Lovell Age: 87 Gender: F : 1935 Exam Date: 07/25/2023 08:16 Exam Location: [facility] Ht (in): 65 Wt (lb): 122 Ordering Physician: Elijah Hampton MD Attending/Referring Phys: Back Hand Gisel Sanford RCS Procedure CPT: Indications: chf Cardiac Hx: Technical Quality: Fair Contrast 1: Total Dose (mL): Contrast 2: Total Dose (mL): MEASUREMENTS (Male / Female) Normal Values 2D ECHO LV Diastolic Diameter PLAX 4.6 cm 4.2 - 5.9 / 3.9 - 5.3 cm LV Systolic Diameter PLAX 2.9 cm IVS Diastolic Thickness 1.2 cm 0.6 - 1.0 / 0.6 - 0.9 cm LVPW Diastolic Thickness 1.0 cm 0.6 - 1.0 / 0.6 - 0.9 cm LV Relative Wall Thickness 0.5 RV Internal Dim ED PLAX 3.6 cm LVOT Diameter 2.2 cm Aortic Root Diameter 3.2 cm LV Diastolic Volume MOD BP 96.3 cm??? 67 - 155 / 56 - 104 cm??? LV Systolic Volume MOD BP 41.9 cm??? 22 - 58 / 19 - 49 cm??? LV Ejection Fraction MOD BP 56.5 % >= 55 % LV Cardiac Index MOD BP 2668.5 cm???/min???m??? LV Diastolic Volume MOD 4C 97.5 cm??? LV Systolic Volume MOD 4C 42.1 cm??? LV Ejection Fraction MOD 4C 56.9 % LV Cardiac Index MOD 4C 2718.6 cm???/min???m??? LV Diastolic Length 4C 7.8 cm LV Systolic Length 4C 7.0 cm LV Diastolic Volume MOD 2C 91.6 cm??? LV Systolic Volume MOD 2C 39.1 cm??? LV Ejection Fraction MOD 2C 57.3 % LV Cardiac Index MOD 2C 2573.9 cm???/min???m??? LV Diastolic Length 2C 7.5 cm LV Systolic Length 2C 6.5 cm Ascending Aorta Diameter 3.8 cm DOPPLER AV Peak Velocity 148.8 cm/s AV Peak Gradient 8.9 mmHg AV Mean Velocity 94.5 cm/s AV Mean Gradient 4.1 mmHg AV Velocity Time Integral 24.5 cm LVOT Peak Velocity 100.9 cm/s LVOT Peak Gradient 4.1 mmHg LVOT Velocity Time Integral 16.7 cm LVOT Stroke Volume 61.3 cm??? LVOT Stroke Volume Index 38.2 ml/m??? LVOT Cardiac Index 3006.3 cm???/min???m??? AV Area Cont Eq vti 2.5 cm??? AV Area Cont Eq pk 2.5 cm??? TR Peak Velocity 303.8 cm/s TR Peak Gradient 36.9 mmHg Right Ventricular Systolic Press 42.0 mmHg PV Peak Velocity 75.8 cm/s PV Peak Gradient 2.3 mmHg FINDINGS Left Ventricle Left ventricular ejection fraction is estimated at 45-50 %. Mildly increased septal wall thickness. Left ventricular cavity size normal. No obvious regional wall motion abnormalities. Right Ventricle Right ventricular dilatation with normal function. Mildly elevated right ventricular systolic pressure. Right Atrium Severe right atrial dilatation. Left Atrium Severe left atrial dilatation. Mitral Valve Mitral valve thickened. No mitral stenosis. No evidence for mitral valve prolapse. Moderate mitral regurgitation. Aortic Valve Trileaflet aortic valve. No aortic stenosis. No aortic regurgitation. Tricuspid Valve Structurally normal tricuspid valve. No tricuspid stenosis. Moderate tricuspid regurgitation. Pulmonic Valve Structurally normal pulmonic valve. No pulmonic stenosis. Mild pulmonic regurgitation. Pericardium No clearcut pericardial effusion probable fat pad Aorta Normal size aortic root and proximal ascending aorta. CONCLUSIONS Left ventricle is of a normal size with mild global decrease in contractility estimated ejection fraction of about 45-50% with moderate mitral regurgitation and tricuspid regurgitation. Right-sided pressures are mildly elevated but probably not exactly well quantified in the range of 40-45 mmHg. No pericardial effusion an echo free space anteriorly is probably a fat pad Previewed by: Dr. Holli Stacy MD (Electronically Signed) Final Date: 25 July 2023 11:43
[2023-07-25 12:23] VITALS: BMI 20.1
--- NOTE | 2023-07-25 13:44 | P.CRDCN ---
History of Present Illness Consult date: 07/25/23 Consult reason: congestive heart failure History of present illness: History of present illness: This is an 87-year-old female with past medical history of chronic persistent atrial fibrillation, hypertension, hyperlipidemia, small cell lung cancer stage III status post last chemotherapy and radiation 3 weeks [address] follows with Dr. Arteaga, remote history of tobacco use and dependence. We have been asked to evaluate the patient for CHF. Patient presented to the hospital due to worsening dyspnea, cough. No fever or chills. Patient is currently s/p 3 doses of IV Lasix with a negative fluid balance. Patient is scheduled for transfusion today. Hypertension Hyperlipidemia EKG atrial fibrillation Echocardiogram performed 07/24/2023 reveals EF 45 to 50% with moderate mitral regurgitation, and tricuspid regurgitation. Right-sided pressures 40 to 45 mmHg. No pericardial effusion. Chest x-ray: Cardiomegaly with perihilar hazy density may reflect mild changes of heart failure. Infiltrates of other etiology not excluded. WBC 6.7, hemoglobin 5.9, platelet count 137. INR 1.8 down from 2.0. Sodium 135, potassium 4.5 initially 5.8. BUN 47 creatinine 0.68. Troponin negative x 1. proBNP 19,400. Stool for occult blood positive. Home cardiac medications: Eliquis 5 mg twice daily, atorvastatin 10 mg at bedtime, Lopressor 100 mg twice daily. Review Of Systems: At the time of my exam: CONSTITUTIONAL: Denies fever or chills. HEENT: Denies blurred vision, vision changes, or eye pain. Denies hemoptysis CARDIOVASCULAR: Denies chest pain. Denies orthopnea. Denies PND. Denies palpitations RESPIRATORY: Denies shortness of breath. Positive cough GASTROINTESTINAL: Denies abdominal pain. Denies nausea or vomiting. Positive black stools HEMATOLOGIC: Denies bleeding disorders. GENITOURINARY: Denies any blood in urine. SKIN: Denies pruitis. Denies rash. Physical examination: Gen: This is a frail-appearing 87-year-old female. VS: reviewed blood pressure 92/57, heart rate 87, pulse ox 96% on room air, afebrile. HEENT: Head is atraumatic, normocephalic. Pupils equal, round. Sclerae is anicteric. Conjunctival pale. NECK: Supple. No JVD. LUNGS: Decreased breath sounds. No wheezes or rhonchi. No intercostal retractions. HEART: Regular rate and rhythm. No murmur. ABDOMEN: Soft No tenderness. EXTREMITIES: No pedal edema. No calf tenderness. NEUROLOGICAL: Patient is awake, alert and oriented x3. Assessment: Acute systolic heart failure Persistent atrial fibrillation Acute GI bleed Acute blood loss anemia Lung cancer Plan: Resume patient's home cardiac medications Patient has been started on IV Lasix 40 mg every 12 hours Monitor VEE, daily weights, electrolytes and renal function Blood transfusion in process. Patient is cleared by cardiology to undergo EGD/colonoscopy as needed for anemia workup. Further recommendations to follow based upon clinical course Thank you kindly for this consultation. Nurse practitioner note has been reviewed, I agree with documented findings and plan of care. Patient was seen and examined. Past Medical History Past Medical History: Atrial Fibrillation, Cancer, Hypertension, Musculoskeletal Disorder Additional Past Medical History / Comment(s): fell August 01 & fx. left hip, didn't know it was fx. @first, A-fib for "years" per pt. History of Any Multi-Drug Resistant Organisms: None Reported Past Surgical History: Appendectomy, Section, Cholecystectomy, Hernia Repair, Hysterectomy, Orthopedic Surgery, Tonsillectomy Additional Past Surgical History / Comment(s): Partial hip replacement Past Anesthesia/Blood Transfusion Reactions: No Reported Reaction Past Psychological History: No Psychological Hx Reported Smoking Status: Former smoker Past Alcohol Use History: None Reported Additional Past Alcohol Use History / Comment(s): quit smoking 20 yrs. ago, smoked <ppd for 40 yrs., usually a [place] daily Past Drug Use History: None Reported - Past Family History Mother Brother(s) Family Medical History: Cancer Medications and Allergies Home Medications Medication Instructions Recorded Confirmed Type Acetaminophen [Tylenol Arthritis] 1,300 mg PO BID 09/03/19 07/24/23 History Apixaban [Eliquis] 5 mg PO BID 09/03/19 07/24/23 History Montelukast [Singulair] 10 mg PO HS 09/03/19 07/24/23 History Atorvastatin [Lipitor] 10 mg PO HS 07/24/23 07/24/23 History Meclizine [Antivert] 12.5 mg PO BID PRN 07/24/23 07/24/23 History Metoprolol Tartrate [Lopressor] 100 mg PO BID 07/24/23 07/24/23 History Oxybutynin ER [Ditropan XL] 10 mg PO DAILY 07/24/23 07/24/23 History Allergies Allergy/AdvReac Type Severity Reaction Status Date / Time Penicillins Allergy Rash/Hives Verified 07/24/23 14:49 Sulfa (Sulfonamide Allergy Rash/Hives Verified 07/24/23 14:49 Antibiotics) Physical Exam Vitals: Vital Signs Temp Pulse Pulse Resp BP BP Pulse Ox 07/25/23 08:22 97.1 F L 55 L 16 107/53 96 07/25/23 04:00 60 18 107/60 100 07/25/23 02:00 90 24 07/25/23 00:50 97.4 F L 90 24 112/67 94 L 07/25/23 00:00 97 23 104/85 100 07/24/23 22:02 84 07/24/23 21:49 85 07/24/23 20:00 81 26 H 118/71 100 07/24/23 19:10 84 26 H 124/81 100 07/24/23 18:00 88 20 100/76 100 07/24/23 14:57 20 07/24/23 14:55 90 20 120/65 98 07/24/23 14:31 96 20 127/89 98 07/24/23 13:31 92 20 116/71 99 07/24/23 12:31 94 16 123/82 99 07/24/23 12:26 97.5 F L 95 20 116/65 98 Intake and Output 07/24/23 07/25/23 07/25/23 22:59 06:59 14:59 Intake Total 0 Output Total 950 750 Balance -950 -750 Intake: Oral 0 Output: Urine 950 750 2-way Urethral 950 Other: Voiding Method Indwelling Catheter # Bowel Movements 1 1 Weight 55 kg Results 07/25/23 06:15 07/25/23 06:15 Cardiac Enzymes 07/24/23 07/24/23 Range/Units 13:10 13:10 AST 28 (14-36) U/L Troponin I <0.012 (0.000-0.034) ng/mL Coagulation 07/24/23 07/25/23 Range/Units 13:10 06:15 PT 19.9 H 18.1 H (10.0-12.5) sec APTT 33.1 H (22.0-30.0) sec CBC 07/24/23 07/25/23 Range/Units 13:10 06:15 WBC 6.5 6.7 (3.8-10.6) k/uL RBC 2.37 L 1.67 L (3.80-5.40) m/uL Hgb 8.4 L D 5.9 L* D (11.4-16.0) gm/dL Hct 26.0 L 18.7 L* (34.0-46.0) % Plt Count 161 D 137 L (150-450) k/uL Comprehensive Metabolic Panel 07/24/23 07/25/23 Range/Units 13:10 06:15 Sodium 137 135 L (137-145) mmol/L Potassium 5.8 H 4.4 (3.5-5.1) mmol/L Chloride 109 H 106 (98-107) mmol/L Carbon Dioxide 22 22 (22-30) mmol/L BUN 45 H 47 H (7-17) mg/dL Creatinine 0.54 0.68 (0.52-1.04) mg/dL Glucose 102 H 94 (74-99) mg/dL Calcium 8.3 L 8.1 L (8.4-10.2) mg/dL AST 28 (14-36) U/L ALT 16 (4-34) U/L Alkaline Phosphatase 87 (38-126) U/L Total Protein 5.1 L (6.3-8.2) g/dL Albumin 2.5 L (3.5-5.0) g/dL Current Medications Generic Name Dose Route Start Last Admin Trade Name Renzoq PRN Reason Stop Dose Admin Acetaminophen 500 mg 07/24/23 18:33 07/24/23 18:43 Acetaminophen Tab 500 Mg Tab PO 500 mg Q6HR PRN Administration Pain Acetaminophen 1,000 mg 07/24/23 21:00 07/25/23 08:24 Acetaminophen Tab 500 Mg Tab PO 1,000 mg BID JAYJAY Administration Albuterol/Ipratropium 3 ml 07/24/23 20:31 07/25/23 09:01 Ipratropium-Albuterol 3 Ml Neb INHALATION Not Given RT-QID JAYJAY Atorvastatin Calcium 10 mg 07/24/23 21:00 07/24/23 21:29 Atorvastatin 10 Mg Tab PO 10 mg HS JAYJAY Administration Budesonide 1 mg 07/24/23 20:31 07/25/23 09:01 Budesonide 1 Mg/2 Ml Nebu INHALATION Not Given RT-BID JAYJAY Calcium Carbonate/Glycine 1,000 mg 07/24/23 20:40 Calcium Carbonate 500 Mg Chewable PO Q4HR PRN Dyspepsia Furosemide 40 mg 07/24/23 21:00 07/25/23 08:23 Furosemide 10 Mg/Ml 4 Ml Vial IV 40 mg Q12HR JAYJAY Administration Lactulose 20 gm 07/24/23 20:40 Lactulose 20 Gm/30 Ml Cup PO DAILY PRN Constipation Lorazepam 0.5 mg 07/24/23 20:40 07/25/23 01:30 Lorazepam 0.5 Mg Tab PO 0.5 mg Q6HR PRN Administration Anxiety Magnesium Oxide 200 mg 07/25/23 09:00 07/25/23 08:24 Magnesium Oxide 400 Mg Tab PO 200 mg BID JAYJAY Administration Melatonin 3 mg 07/24/23 20:40 Melatonin 3 Mg Tablet PO HS PRN Insomnia Metoprolol Tartrate 100 mg 07/24/23 21:00 07/25/23 08:24 Metoprolol Tartrate 50 Mg Tab PO 100 mg BID JAYJAY Administration Montelukast Sodium 10 mg 07/24/23 21:00 07/24/23 21:29 Montelukast 10 Mg Tab PO 10 mg HS JAYJAY Administration Naloxone HCl 0.2 mg 07/24/23 20:40 Naloxone 0.4 Mg/Ml 1 Ml Vial IV Q2M PRN Opioid Reversal Oxybutynin Chloride 10 mg 07/25/23 09:00 07/25/23 08:24 Oxybutynin 10 Mg Tab.Er.24 PO 10 mg DAILY JAYJAY Administration Pantoprazole Sodium 40 mg 07/24/23 21:00 07/25/23 08:23 Pantoprazole 40 Mg/10 Ml Vial IVP 40 mg BID JAYJAY Administration Prochlorperazine Maleate 5 mg 07/24/23 20:40 Prochlorperazine 5 Mg Tab PO Q8HR PRN Nausea And Vomiting Intake and Output 07/24/23 07/25/23 07/25/23 22:59 06:59 14:59 Intake Total 0 Output Total 950 750 Balance -950 -750 Intake: Oral 0 Output: Urine 950 750 2-way Urethral 950 Other: Voiding Method Indwelling Catheter # Bowel Movements 1 1 Weight 55 kg 07/25/23 06:15 07/25/23 06:15
[2023-07-25] MEDS: MAGNESIUM SULFATE-D5W PMX 1 GM in DEXTROSE/WATER 1 100ML.BAG IVPB ONE (15:16)
--- NOTE | 2023-07-25 15:19 | P.PN ---
Subjective Progress Note Date: 07/25/23 CHIEF COMPLAINT: Shortness of breath HISTORY OF PRESENT ILLNESS: Patient continues to have black stools. Hemoglobin has dropped from 8.4-5.9. She is receiving a unit of blood. Magnesium 1.5 and receiving supplement. INR 1.8. Patient resting comfortably. She is on IV Lasix for CHF exacerbation. Cardiology has cleared her to proceed with EGD and colonoscopy for anemia workup. Afebrile. Hypotensive. Denies any abdominal pain. Oral intake today has been poor PHYSICAL EXAM: VITAL SIGNS: Reviewed. GENERAL: no acute distress. Pale ABDOMEN: Soft. Nondistended. Nontender. ASSESSMENT: 1. Shortness of breath 2. Anemia with melanotic stools 3. A-fib anticoagulated with Eliquis at home 4. History of small cell lung cancer with recent chemo and radiation treatment 3 weeks ago 5. Acute CHF exacerbation 6. Hypomagnesemia PLAN: -Patient is scheduled tentatively for EGD tomorrow with Dr. Cade. Awaiting family's final decision to proceed with EGD -Continue IV Protonix twice a day -Continue to monitor hemoglobin -Continue to monitor for any signs or symptoms of bleeding -Continue to correct electrolyte abnormalities -Continue treatment for CHF exacerbation -Hold [employer] Physician [employer] Closer note has been reviewed by physician. Signing provider agrees with the documented findings, assessment, and plan of care. Objective - Vital Signs Vital signs: Vital Signs Temp 97.2 F L 07/25/23 12:41 Pulse 63 07/25/23 12:41 Resp 16 07/25/23 12:41 BP 88/53 07/25/23 12:41 Pulse Ox 93 L 07/25/23 12:41 FiO2 Intake & Output 07/24/23 07/25/23 07/25/23 18:59 06:59 18:59 Intake Total 120 Output Total 950 750 Balance -950 -630 Weight 55.338 kg 55 kg 55 kg Intake: IV 10 Invasive Line 1 10 Oral 110 Blood Product 0 Unit 0 Output: Urine 950 750 2-way Urethral 950 Other: Voiding Method Indwelling Catheter Indwelling Catheter # Bowel Movements 1 1 - Labs CBC & Chem 7: 07/25/23 06:15 07/25/23 06:15 Labs: Abnormal Lab Results - Last 24 Hours (Table) 07/24/23 07/24/23 07/24/23 Range/Units 13:10 13:10 13:10 RBC 2.37 L (3.80-5.40) m/uL Hgb 8.4 L D (11.4-16.0) gm/dL Hct 26.0 L (34.0-46.0) % MCV 110.0 H (80.0-100.0) fL MCH 35.3 H (25.0-35.0) pg Plt Count (150-450) k/uL Lymphocytes # 0.9 L (1.0-4.8) k/uL Macrocytosis Marked A PT 19.9 H (10.0-12.5) sec INR 2.0 H (<1.2) APTT 33.1 H (22.0-30.0) sec Sodium (137-145) mmol/L Potassium 5.8 H (3.5-5.1) mmol/L Chloride 109 H (98-107) mmol/L BUN 45 H (7-17) mg/dL Glucose 102 H (74-99) mg/dL Calcium 8.3 L (8.4-10.2) mg/dL Magnesium 1.0 L (1.6-2.3) mg/dL Total Protein 5.1 L (6.3-8.2) g/dL Albumin 2.5 L (3.5-5.0) g/dL Stool Occult Blood (Negative) Crossmatch 07/24/23 07/25/23 07/25/23 Range/Units 16:30 06:15 06:15 RBC 1.67 L (3.80-5.40) m/uL Hgb 5.9 L* D (11.4-16.0) gm/dL Hct 18.7 L* (34.0-46.0) % MCV 112.0 H (80.0-100.0) fL MCH 35.4 H (25.0-35.0) pg Plt Count 137 L (150-450) k/uL Lymphocytes # (1.0-4.8) k/uL Macrocytosis Marked A PT 18.1 H (10.0-12.5) sec INR 1.8 H (<1.2) APTT (22.0-30.0) sec Sodium (137-145) mmol/L Potassium (3.5-5.1) mmol/L Chloride (98-107) mmol/L BUN (7-17) mg/dL Glucose (74-99) mg/dL Calcium (8.4-10.2) mg/dL Magnesium (1.6-2.3) mg/dL Total Protein (6.3-8.2) g/dL Albumin (3.5-5.0) g/dL Stool Occult Blood Positive H (Negative) Crossmatch 07/25/23 07/25/23 Range/Units 06:15 08:33 RBC (3.80-5.40) m/uL Hgb (11.4-16.0) gm/dL Hct (34.0-46.0) % MCV (80.0-100.0) fL MCH (25.0-35.0) pg Plt Count (150-450) k/uL Lymphocytes # (1.0-4.8) k/uL Macrocytosis PT (10.0-12.5) sec INR (<1.2) APTT (22.0-30.0) sec Sodium 135 L (137-145) mmol/L Potassium (3.5-5.1) mmol/L Chloride (98-107) mmol/L BUN 47 H (7-17) mg/dL Glucose (74-99) mg/dL Calcium 8.1 L (8.4-10.2) mg/dL Magnesium 1.5 L (1.6-2.3) mg/dL Total Protein (6.3-8.2) g/dL Albumin (3.5-5.0) g/dL Stool Occult Blood (Negative) Crossmatch See Detail
--- NOTE | 2023-07-25 17:16 | P.CONS ---
History of Present Illness - Reason for Consult Consult date: 07/25/23 Hx NSCLC Requesting physician: Titi Cortes - Chief Complaint SOB, CHF - History of Present Illness Mrs. Lovell is a pleasant 87-year-old female patient of Dr. Arteaga diagnosed with stage III non-small cell lung cancer. She presented with acute neck and left shoulder pain in February 2023. Chest x-ray showed a right lower lobe lung mass. CT chest 02/21/2023 showed a 4.1 cm right lower lobe mass and 1.4 cm right hilar node. 01/20/2023 PET showed suspicious uptake in the right lower lobe mass, right hilar node and a precarinal node. 03/29/2023 biopsy positive for adenocarcinoma. Caris showed PD-L1 80%, KRAS G12C mutation and Tp53 mutation, high TMB, microsatellite stable. Pt and family decided on treatment and 05/16/2023 she started weekly carbo/Taxol with radiation. She completed 5 cycles but, chemo was discontinued due to poor tolerance. She completed radiation 06/25/2023. She was last seen on office 07/09 with plans to allow some healing time s/p treatment and sched follow up imaging, sched for 09/11/23. At that time she was still feeling very tired, dry cough, exertional dyspnea, excess bruising was stable, c/o mild/mod peripheral neuropathy, small open ulcer left calf, no other bleeding was reported. Her Hgb was 11 and plt were 180,000 and WBC was 6.4 She is currently admitted for SOB, labs consistent with CHF. She is on lasix. Melonitic stools reported so, eliquis for a-fib is on hold, Surgery has evaluated, pending if plan for endoscopy. Hgb was 8.4 on admit, it is 5.9 today. Transfusion pending. Patient reports that she does not feel well in general, this has been progressive over the last several days. Review of Systems 10 point ROS is neg except as stated in HPI Past Medical History Past Medical History: Atrial Fibrillation, Cancer, Hypertension, Musculoskeletal Disorder Additional Past Medical History / Comment(s): fell August 01 & fx. left hip, didn't know it was fx. @first, A-fib for "years" per pt. History of Any Multi-Drug Resistant Organisms: None Reported Past Surgical History: Appendectomy, Section, Cholecystectomy, Hernia Repair, Hysterectomy, Orthopedic Surgery, Tonsillectomy Additional Past Surgical History / Comment(s): Partial hip replacement Past Anesthesia/Blood Transfusion Reactions: No Reported Reaction Past Psychological History: No Psychological Hx Reported Smoking Status: Former smoker Past Alcohol Use History: None Reported Additional Past Alcohol Use History / Comment(s): quit smoking 20 yrs. ago, smoked <ppd for 40 yrs., usually a [place] daily Past Drug Use History: None Reported - Past Family History Mother Brother(s) Family Medical History: Cancer Medications and Allergies Home Medications Medication Instructions Recorded Confirmed Type Acetaminophen [Tylenol Arthritis] 1,300 mg PO BID 09/03/19 07/24/23 History Apixaban [Eliquis] 5 mg PO BID 09/03/19 07/24/23 History Montelukast [Singulair] 10 mg PO HS 09/03/19 07/24/23 History Atorvastatin [Lipitor] 10 mg PO HS 07/24/23 07/24/23 History Meclizine [Antivert] 12.5 mg PO BID PRN 07/24/23 07/24/23 History Metoprolol Tartrate [Lopressor] 100 mg PO BID 07/24/23 07/24/23 History Oxybutynin ER [Ditropan XL] 10 mg PO DAILY 07/24/23 07/24/23 History Allergies Allergy/AdvReac Type Severity Reaction Status Date / Time Penicillins Allergy Rash/Hives Verified 07/24/23 14:49 Sulfa (Sulfonamide Allergy Rash/Hives Verified 07/24/23 14:49 Antibiotics) Physical Exam Vitals: Vital Signs Temp Pulse Pulse Resp BP BP Pulse Ox 07/25/23 08:22 97.1 F L 55 L 16 107/53 96 07/25/23 04:00 60 18 107/60 100 07/25/23 02:00 90 24 07/25/23 00:50 97.4 F L 90 24 112/67 94 L 07/25/23 00:00 97 23 104/85 100 07/24/23 22:02 84 07/24/23 21:49 85 07/24/23 20:00 81 26 H 118/71 100 07/24/23 19:10 84 26 H 124/81 100 07/24/23 18:00 88 20 100/76 100 07/24/23 14:57 20 07/24/23 14:55 90 20 120/65 98 07/24/23 14:31 96 20 127/89 98 07/24/23 13:31 92 20 116/71 99 07/24/23 12:31 94 16 123/82 99 07/24/23 12:26 97.5 F L 95 20 116/65 98 Intake and Output 07/24/23 07/25/23 07/25/23 22:59 06:59 14:59 Intake Total 0 Output Total 950 750 Balance -950 -750 Intake: Oral 0 Output: Urine 950 750 2-way Urethral 950 Other: Voiding Method Indwelling Catheter # Bowel Movements 1 1 Weight 55 kg - Constitutional General appearance: average body habitus, cooperative, mild distress - EENT wet purpura on tongue Eyes: anicteric sclerae, EOMI ENT: hard of hearing - Neck Neck: no lymphadenopathy - Respiratory Respiratory: bilateral: CTA, diminished, other (mild SOB at rest) - Cardiovascular Rhythm: regular Heart sounds: normal: S1, S2 Abnormal Heart Sounds: no systolic murmur, no diastolic murmur, no rub, no S3 Gallop, no S4 Gallop, no click, no other leg Peripheral Edema: bilateral: None - Gastrointestinal Odor of melanotic stool General gastrointestinal: no absent bowel sounds, no decreased bowel sounds, no distended, no hepatomegaly, no hyperactive bowel sounds, normal bowel sounds, no organomegaly, no rigid, no scaphoid, soft, no splenomegaly, no tenderness, no umbilical hernia, no ventral hernia - Integumentary Integumentary: pale - Neurologic Neurologic: CNII-XII intact (grossly) - Musculoskeletal Musculoskeletal: generalized weakness - Psychiatric Psychiatric: A&O x's 3, appropriate affect, intact judgment & insight Results CBC & Chem 7: 07/25/23 06:15 07/25/23 06:15 Labs: Abnormal Lab Results - Last 24 Hours (Table) 07/24/23 07/24/23 07/24/23 Range/Units 13:10 13:10 13:10 RBC 2.37 L (3.80-5.40) m/uL Hgb 8.4 L D (11.4-16.0) gm/dL Hct 26.0 L (34.0-46.0) % MCV 110.0 H (80.0-100.0) fL MCH 35.3 H (25.0-35.0) pg Plt Count (150-450) k/uL Lymphocytes # 0.9 L (1.0-4.8) k/uL Macrocytosis Marked A PT 19.9 H (10.0-12.5) sec INR 2.0 H (<1.2) APTT 33.1 H (22.0-30.0) sec Sodium (137-145) mmol/L Potassium 5.8 H (3.5-5.1) mmol/L Chloride 109 H (98-107) mmol/L BUN 45 H (7-17) mg/dL Glucose 102 H (74-99) mg/dL Calcium 8.3 L (8.4-10.2) mg/dL Magnesium 1.0 L (1.6-2.3) mg/dL Total Protein 5.1 L (6.3-8.2) g/dL Albumin 2.5 L (3.5-5.0) g/dL Stool Occult Blood (Negative) 07/24/23 07/25/23 07/25/23 Range/Units 16:30 06:15 06:15 RBC 1.67 L (3.80-5.40) m/uL Hgb 5.9 L* D (11.4-16.0) gm/dL Hct 18.7 L* (34.0-46.0) % MCV 112.0 H (80.0-100.0) fL MCH 35.4 H (25.0-35.0) pg Plt Count 137 L (150-450) k/uL Lymphocytes # (1.0-4.8) k/uL Macrocytosis Marked A PT 18.1 H (10.0-12.5) sec INR 1.8 H (<1.2) APTT (22.0-30.0) sec Sodium (137-145) mmol/L Potassium (3.5-5.1) mmol/L Chloride (98-107) mmol/L BUN (7-17) mg/dL Glucose (74-99) mg/dL Calcium (8.4-10.2) mg/dL Magnesium (1.6-2.3) mg/dL Total Protein (6.3-8.2) g/dL Albumin (3.5-5.0) g/dL Stool Occult Blood Positive H (Negative) 07/25/23 Range/Units 06:15 RBC (3.80-5.40) m/uL Hgb (11.4-16.0) gm/dL Hct (34.0-46.0) % MCV (80.0-100.0) fL MCH (25.0-35.0) pg Plt Count (150-450) k/uL Lymphocytes # (1.0-4.8) k/uL Macrocytosis PT (10.0-12.5) sec INR (<1.2) APTT (22.0-30.0) sec Sodium 135 L (137-145) mmol/L Potassium (3.5-5.1) mmol/L Chloride (98-107) mmol/L BUN 47 H (7-17) mg/dL Glucose (74-99) mg/dL Calcium 8.1 L (8.4-10.2) mg/dL Magnesium 1.5 L (1.6-2.3) mg/dL Total Protein (6.3-8.2) g/dL Albumin (3.5-5.0) g/dL Stool Occult Blood (Negative) Assessment and Plan (1) Non-small cell lung cancer (NSCLC) Current Visit: Yes Status: Acute Priority: Medium Code(s): C34.90 - MALIGNANT NEOPLASM OF UNSP PART OF UNSP BRONCHUS OR LUNG SNOMED Code(s): 623619777 Plan: Stage III non-small cell lung cancer -Status post 5 cycles of chemo, additional chemo was held due to poor tolerance. She completed radiation approximately 06/24/2023. -Plan was for follow-up imaging in August to assess treatment. -Patient was seen just about 2 weeks ago in the office and was not feeling well, though she did not have the symptoms she is presenting with. Macrocytic anemia -Hemoglobin in the office about 2 weeks ago was 11. -Drop in hemoglobin is secondary to GI bleeding. -Surgery has seen the patient, plans for upper endoscopy. -Eliquis for A-fib has been held. Would recommend a cardiology consult for cl mmendations regarding anticoagulation for atrial fibrillation if no source of acute bleed is found on endoscopy and able to be treated -Macrocytic anemia workup ordered on pretransfusion blood -Agree with transfusion. Transfuse for hemoglobin less than 7 or if patient is symptomatic. -CBC daily while inpt CHF -Cardiology consulted, Defer mgmt of the same. Doctor attests: I performed a history and physical examination of this patient, developed impression and plan of care. Discussed with dictator. I agree with dictators note, documented as a scribe.
[2023-07-25 18:29] LABS: Anisocytosis Moderate; HCT 24.6 % (34.0-46.0); Hypochromasia Moderate; MCH 32.6 pg (25.0-35.0); MCHC 31.8 g/dL (31.0-37.0); Macrocytosis Marked; Mean Platelet Volume 9.5; Platelet Count 134 k/uL (150-450); Poikilocytosis Slight; RDW 21.7 % (11.5-15.5); WBC 7.6 k/uL (3.8-10.6)
[2023-07-25 18:31] LABS: HGB 7.8 gm/dL (11.4-16.0); MCV 102.4 fL (80.0-100.0)
--- NOTE | 2023-07-25 20:42 | P.PN ---
Progress Note - Text Progress Note Date: 07/25/23 Chief Complaint: Short of breath This is a pleasant 87-year-old patient who follows with Dr. Ondina Engle. Chronic stable medical condition include atrial fibrillation, essential hypertension, osteoarthritis. 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. Arteaga oncologist. She is presented here with worsening shortness of breath. Especially more so in the last 2 days. Decreased energy. Appetite is okay. She had black stool yesterday. Also some black stool about a week ago. She does get Eliquis for A-fib. Does not have any oxygen at home patient in the ER is accompanied by her son Jesus. Denies any edema. July 24: Hemoglobin this morning came back at 5.9. 1 unit of blood ordered. Patient rather tired. Had some more maroon stool overnight and this morning. Active Medications Acetaminophen (Acetaminophen Tab 500 Mg Tab) 500 mg PO Q6HR PRN PRN Reason: Pain Last Admin: 07/25/23 11:51 Dose: 500 mg Acetaminophen (Acetaminophen Tab 500 Mg Tab) 1,000 mg PO BID [facility] Last Admin: 07/25/23 08:24 Dose: 1,000 mg Albuterol/Ipratropium (Ipratropium-Albuterol 3 Ml Neb) 3 ml INHALATION RT-QID [facility] Last Admin: 07/25/23 17:21 Dose: Not Given Atorvastatin Calcium (Atorvastatin 10 Mg Tab) 10 mg PO HS [facility] Last Admin: 07/24/23 21:29 Dose: 10 mg Budesonide (Budesonide 1 Mg/2 Ml Nebu) 1 mg INHALATION RT-BID [facility] Last Admin: 07/25/23 09:01 Dose: Not Given Calcium Carbonate/Glycine (Calcium Carbonate 500 Mg Chewable) 1,000 mg PO Q4HR PRN PRN Reason: Dyspepsia Furosemide (Furosemide 10 Mg/Ml 4 Ml Vial) 40 mg IV Q12HR [facility] Last Admin: 07/25/23 08:23 Dose: 40 mg Lactulose (Lactulose 20 Gm/30 Ml Cup) 20 gm PO DAILY PRN PRN Reason: Constipation Lorazepam (Lorazepam 0.5 Mg Tab) 0.5 mg PO Q6HR PRN PRN Reason: Anxiety Last Admin: 07/25/23 11:50 Dose: 0.5 mg Magnesium Oxide (Magnesium Oxide 400 Mg Tab) 200 mg PO BID [facility] Last Admin: 07/25/23 08:24 Dose: 200 mg Melatonin (Melatonin 3 Mg Tablet) 3 mg PO HS PRN PRN Reason: Insomnia Metoprolol Tartrate (Metoprolol Tartrate 50 Mg Tab) 100 mg PO BID [facility] Last Admin: 07/25/23 08:24 Dose: 100 mg Montelukast Sodium (Montelukast 10 Mg Tab) 10 mg PO HS [facility] Last Admin: 07/24/23 21:29 Dose: 10 mg Naloxone HCl (Naloxone 0.4 Mg/Ml 1 Ml Vial) 0.2 mg IV Q2M PRN PRN Reason: Opioid Reversal Oxybutynin Chloride (Oxybutynin 10 Mg Tab.Er.24) 10 mg PO DAILY [facility] Last Admin: 07/25/23 08:24 Dose: 10 mg Pantoprazole Sodium (Pantoprazole 40 Mg/10 Ml Vial) 40 mg IVP BID [facility] Last Admin: 07/25/23 08:23 Dose: 40 mg Prochlorperazine Maleate (Prochlorperazine 5 Mg Tab) 5 mg PO Q8HR PRN PRN Reason: Nausea And Vomiting Social history: Lives alone. Son lives nearby. Smoked less than a pack a day for 40 years stopped over 20 years ago. Does drink a [place] daily. Physical examination: VITAL SIGNS: 97.2, 63, 16, 88 x 53, 93% room air GENERAL: BMI 20.3,. Reclining in bed a, tired EYES: [Pupils equal. Conjunctiva pale. HEENT: External appearance of nose and ears normal, oral cavity grossly normal. NECK: JVD possibly raised; masses not palpable. HEART: Heart sounds regular; no edema. LUNGS: Respiratory rate increased l decreased breath sounds no wheezing. ABDOMEN: Soft, nontender, liver spleen not palpable, no masses palpable. PSYCH: Alert and oriented x3; mood and affect tired MUSCULOSKELETAL:No Clubbing/cyanosis;muscles-grossly intact. OA INVESTIGATIONS, reviewed in the clinical context: 2D echocardiogram: EF 45 to 50%. No wall motion abnormality. Moderate mitral regurgitation. Moderate tricuspid regurgitation. July 24: White count 6.7 hemoglobin 5.9 platelets 137 potassium 4.4 creatinine 0.68 July 24, 2023: White count 6.5 hemoglobin 8.4 platelets 161 sodium 137 potassium 5.8 BUN 45 creatinine 0.54 proBNP 73434 Stool occult blood positive EKG tracing personally reviewed by me-atrial fibrillation. Rate 78. Abnormal T waves in inferior lateral leads Chest x-ray film personally reviewed by me-cardiomegaly. Prominent hilum/pulmonary artery Previous investigations CT chest with contrast [February 2023] right lower lobe superior segment 4.3 cm mass. Additional right hilar enlarged lymph nodes suspicious for metastasis. - Assessment and plan: -Acute CHF exacerbation. Combination of systolic and diastolic dysfunction. EF 45 to 50%. IV Lasix 40 mg every 12 Telemetry. -Acute COPD exacerbation in a prior smoker DuoNeb 4 times daily. Pulmicort nebulizer 1 mg twice daily -Small cell lung cancer stage III 3 weeks ago received chemotherapy and radiation treatment. Being followed by Dr. Lazaro Arteaga oncology. -Acute GI bleed in a patient is on Eliquis: Slow to respond Eliquis held. General surgery consulted as GI services not available in the hospital Follow H&H -Acute blood loss anemia from GI bleed 1 unit of blood ordered -Persistent atrial fibrillation, rate controlled Lopressor 100 mg twice daily. Hold Eliquis because of GI bleed -Primary osteoarthritis Tylenol as needed -Urinary incontinence Ditropan XL 10 mg a day -Power of patent prosecution attorney: Son Jesus, and daughter Naina -DNR Advance care planning [July 24, 2023] Patient is medical condition overall diagnosis end-of-life care was discussed with the patient present ultrasound. Questions answered. She has decided to proceed with DNR. Time spent about 25 minutes Patient other tired. Continue IV Lasix. Given 1 unit of blood. Prognosis guarded. Past Medical History Past Medical History: Atrial Fibrillation, Hypertension, Musculoskeletal Disorder Additional Past Medical History / Comment(s): August 01 & fx. left hip, didn't know it was fx. @first, A-fib for "years" per pt. History of Any Multi-Drug Resistant Organisms: None Reported Past Surgical History: Appendectomy, Section, Cholecystectomy, Hernia Repair, Hysterectomy, Orthopedic Surgery, Tonsillectomy Additional Past Surgical History / Comment(s): Partial hip replacement Past Anesthesia/Blood Transfusion Reactions: No Reported Reaction Past Psychological History: No Psychological Hx Reported Smoking Status: Former smoker Past Alcohol Use History: None Reported Past Drug Use History: None Reported
[2023-07-26 03:42] LABS: % Iron Saturation 78.89 (12.00-45.00)
[2023-07-26 06:48] LABS: Anisocytosis Moderate; Basophils % (A) 0 %; Eosinophils # (A) 0.2 k/uL (0-0.7); Eosinophils % (A) 3 %; HCT 23.7 % (34.0-46.0); HGB 7.4 gm/dL (11.4-16.0); Hypochromasia Moderate; Lymphocytes # (A) 0.6 k/uL (1.0-4.8); Lymphocytes % (A) 9 %; MCH 32.2 pg (25.0-35.0); MCHC 31.4 g/dL (31.0-37.0); MCV 102.7 fL (80.0-100.0); Macrocytosis Marked; Mean Platelet Volume 10.2; Monocytes # (A) 0.4 k/uL (0-1.0); Monocytes % (A) 6 %; Neutrophils # (A) 5.7 k/uL (1.3-7.7); Neutrophils % (A) 80 %; Platelet Count 128 k/uL (150-450); Poikilocytosis Slight; RBC 2.31 m/uL (3.80-5.40); RDW 22.2 % (11.5-15.5); WBC 7.2 k/uL (3.8-10.6)
[2023-07-26 07:00] LABS: INR 1.3 (<1.2); Partial Thromboplastin Time 28.2 sec (22.0-30.0)
[2023-07-26 07:20] LABS: African American GFR (CKD) >90 (>60 ml/min/1.73 sqM); Anion Gap 2 mmol/L; Blood Urea Nitrogen 36 mg/dL (7-17); Calcium 8.1 mg/dL (8.4-10.2); Carbon Dioxide 31 mmol/L (22-30); Chloride 104 mmol/L (98-107); Glucose 98 mg/dL (74-99); Magnesium 1.4 mg/dL (1.6-2.3); Non-African American GFR(CKD) 80 (>60 ml/min/1.73 sqM); Potassium 4.1 mmol/L (3.5-5.1); Sodium 137 mmol/L (137-145)
[2023-07-26] MEDS: MAGNESIUM SULFATE-D5W PMX 1 GM in DEXTROSE/WATER 1 100ML.BAG IVPB SCH (08:45)
[2023-07-26] MEDS ORDERED: LIDOCAINE 1% INJ 10MG/ML (20 ML MDV) ONE (11:45)
[2023-07-26] MEDS ORDERED: PROPOFOL 10 MG/ML 20 ML VIAL IV ONE (11:45)
[2023-07-26] MEDS: SODIUM CHLORIDE 0.9% 500 ML 500 ML IV ONE (11:52)
--- NOTE | 2023-07-26 12:07 | P.OP ---
Date of Procedure: 07/26/23 Preoperative Diagnosis: anemia Postoperative Diagnosis: mild antral gastritis small hiatal hernia Procedure(s) Performed: EGD Anesthesia: MAC Surgeon: Laureano Cade Pathology: other (antrum) Condition: stable Disposition: PACU Description of Procedure: patient's placed on the endoscopy table in the lateral position. She received IV sedation. The gastroscope placed oropharynx passed in the esophagus into the stomach. Scope was then placed through the pylorus. First and second portion of the duodenum appeared normal. Scope summer back the antrum this appeared minimally inflamed. A biopsies performed. Scope was then retroflexed and the remainder the stomach appeared normal. The patient had a small hiatal hernia. The GE junction was at 38 cm. The distal esophagus appeared normal. Proximal esophagus appeared normal. Scope withdrawn for patient.
--- NOTE | 2023-07-26 13:20 | P.PN ---
Subjective Progress Note Date: 07/26/23 CHIEF COMPLAINT: Shortness of breath HISTORY OF PRESENT ILLNESS: Patient seen prior to EGD. She has had no black stools today. Hemoglobin 5.9 up to 7.8 and now 7.4 after blood transfusion. Stool for occult blood positive magnesium 1.4 today and being replaced vital stable. PHYSICAL EXAM: VITAL SIGNS: Reviewed. GENERAL: no acute distress. Pale ABDOMEN: Soft. Nondistended. Nontender. ASSESSMENT: 1. Shortness of breath 2. Anemia with melanotic stools 3. A-fib anticoagulated with Eliquis at home 4. History of small cell lung cancer with recent chemo and radiation treatment 3 weeks ago 5. Acute CHF exacerbation 6. Hypomagnesemia PLAN: -Patient scheduled for EGD today -Magnesium being replaced -Continue IV Protonix twice a day -Continue to monitor hemoglobin -Continue to monitor for any signs or symptoms of bleeding -Continue to correct electrolyte abnormalities -Continue treatment for CHF exacerbation -Hold Eliquis Physician Licensing Services Clerk note has been reviewed by physician. Signing provider agrees with the documented findings, assessment, and plan of care. Objective - Vital Signs Vital signs: Vital Signs Temp 97.1 F L 07/26/23 08:35 Pulse 81 07/26/23 12:35 Resp 18 07/26/23 12:35 BP 110/52 07/26/23 12:35 Pulse Ox 96 07/26/23 12:35 FiO2 Intake & Output 07/25/23 07/26/23 07/26/23 18:59 06:59 18:59 Intake Total 662 20 100 Output Total 750 1900 1625 Balance -88 -1880 -1525 Weight 55 kg Intake: IV 20 20 100 Invasive Line 1 20 20 Oral 332 Blood Product 310 Rc As-1 Unit 310 [id number] Output: Urine 750 1900 1625 Uretheral (Barreto) 1900 Other: Voiding Method Indwelling Catheter Indwelling Catheter Indwelling Catheter # Bowel Movements 3 - Labs CBC & Chem 7: 07/26/23 06:36 07/26/23 06:36 Labs: Abnormal Lab Results - Last 24 Hours (Table) 07/25/23 07/25/23 07/25/23 Range/Units 08:33 17:30 17:30 RBC 2.40 L (3.80-5.40) m/uL Hgb 7.8 L D (11.4-16.0) gm/dL Hct 24.6 L (34.0-46.0) % MCV 102.4 H D (80.0-100.0) fL RDW 21.7 H (11.5-15.5) % Plt Count 134 L (150-450) k/uL Lymphocytes # (1.0-4.8) k/uL Macrocytosis Marked A PT (10.0-12.5) sec INR (<1.2) Carbon Dioxide (22-30) mmol/L BUN (7-17) mg/dL Calcium (8.4-10.2) mg/dL Magnesium (1.6-2.3) mg/dL TIBC 199 L (228-460) UG/DL % Saturation 78.89 H (12.00-45.00) Transferrin 142.0 L (204.0-354.0) mg/dL Ferritin 499.0 H (10.0-291.0) ng/mL Vitamin B12 1467.0 H (200.0-944.0) pg/mL Crossmatch See Detail 07/26/23 07/26/23 07/26/23 Range/Units 06:36 06:36 06:36 RBC 2.31 L (3.80-5.40) m/uL Hgb 7.4 L (11.4-16.0) gm/dL Hct 23.7 L (34.0-46.0) % MCV 102.7 H (80.0-100.0) fL RDW 22.2 H (11.5-15.5) % Plt Count 128 L (150-450) k/uL Lymphocytes # 0.6 L (1.0-4.8) k/uL Macrocytosis Marked A PT 14.0 H (10.0-12.5) sec INR 1.3 H (<1.2) Carbon Dioxide 31 H (22-30) mmol/L BUN 36 H (7-17) mg/dL Calcium 8.1 L (8.4-10.2) mg/dL Magnesium 1.4 L (1.6-2.3) mg/dL TIBC (228-460) UG/DL % Saturation (12.00-45.00) Transferrin (204.0-354.0) mg/dL Ferritin (10.0-291.0) ng/mL Vitamin B12 (200.0-944.0) pg/mL Crossmatch
--- NOTE | 2023-07-26 14:23 | P.PN ---
Subjective Progress Note Date: 07/26/23 Consult reason: congestive heart failure History of present illness: History of present illness: This is an 87-year-old female with past medical history of chronic persistent atrial fibrillation, hypertension, hyperlipidemia, small cell lung cancer stage III status post last chemotherapy and radiation 3 weeks [address] follows [address] Dr. Arteaga, remote history of tobacco use and dependence. We have been asked to evaluate the patient for CHF. Patient presented to the hospital due to worsening dyspnea, cough. No fever or chills. Patient is currently s/p 3 doses of IV Lasix with a negative fluid balance. Patient is scheduled for transfusion today. Hypertension Hyperlipidemia EKG atrial fibrillation Echocardiogram performed 07/24/2023 reveals EF 45 to 50% with moderate mitral regurgitation, and tricuspid regurgitation. Right-sided pressures 40 to 45 mmHg. No pericardial effusion. Chest x-ray: Cardiomegaly with perihilar hazy density may reflect mild changes of heart failure. Infiltrates of other etiology not excluded. WBC 6.7, hemoglobin 5.9, platelet count 137. INR 1.8 down from 2.0. Sodium 135, potassium 4.5 initially 5.8. BUN 47 creatinine 0.68. Troponin negative x 1. proBNP 19,400. Stool for occult blood positive. Home cardiac medications: Eliquis 5 mg twice daily, atorvastatin 10 mg at bedtime, Lopressor 100 mg twice daily. 07/25 Patient was fairly comfortable through the night. No new concerns. No shortness of breath at rest. Blood pressure is 117/62, heart rate 60 to 70s. Repeat blood work reveals hemoglobin 7.4. INR is 1.3. Potassium 4.1, creatinine 0.68. She is status post transfusion of 1 unit of packed RBCs. She is scheduled for EGD today. Echocardiogram reveals EF of 45 to 50%. Moderate mitral regurgitation and tricuspid regurgitation. Right-sided pressures 40-45 mmHg. No pericardial effusion. Physical examination: Gen: This is a frail-appearing 87-year-old female. VS: reviewed blood pressure 92/57, heart rate 87, pulse ox 96% on room air, afebrile. HEENT: Head is atraumatic, normocephalic. Pupils equal, round. Sclerae is anicteric. Conjunctival pale. NECK: Supple. No JVD. LUNGS: Decreased breath sounds. No wheezes or rhonchi. No intercostal retractions. HEART: Regular rate and rhythm. No murmur. ABDOMEN: Soft No tenderness. EXTREMITIES: No pedal edema. No calf tenderness. NEUROLOGICAL: Patient is awake, alert and oriented x3. Assessment: Acute systolic heart failure Persistent atrial fibrillation Acute GI bleed, EGD scheduled for today Acute blood loss anemia status post transfusion 1 unit of packed RBCs Lung cancer Plan: Continue patient's home cardiac medications Continue IV Lasix 40 mg every 12 hours Monitor VEE, daily weights, electrolytes and renal function Further recommendations to follow based upon clinical course Nurse practitioner note has been reviewed, I agree with documented findings and plan of care. Patient was seen and examined. Objective - Vital Signs Vital signs: Vital Signs Temp 97.1 F L 07/26/23 08:35 Pulse 76 07/26/23 08:35 Resp 16 07/26/23 08:35 BP 117/62 07/26/23 08:35 Pulse Ox 94 L 07/26/23 08:35 FiO2 Intake & Output 07/25/23 07/26/23 07/26/23 18:59 06:59 18:59 Intake Total 662 20 Output Total 750 1900 Balance -88 -1880 Weight 55 kg Intake: IV 20 20 Invasive Line 1 20 20 Oral 332 Blood Product 310 Rc As-1 Unit 310 [id number] Output: Urine 750 1900 Uretheral (Barreto) 1900 Other: Voiding Method Indwelling Catheter Indwelling Catheter Indwelling Catheter # Bowel Movements 3 - Labs CBC & Chem 7: 07/26/23 06:36 07/26/23 06:36 Labs: Abnormal Lab Results - Last 24 Hours (Table) 07/25/23 07/25/23 07/25/23 Range/Units 08:33 17:30 17:30 RBC 2.40 L (3.80-5.40) m/uL Hgb 7.8 L D (11.4-16.0) gm/dL Hct 24.6 L (34.0-46.0) % MCV 102.4 H D (80.0-100.0) fL RDW 21.7 H (11.5-15.5) % Plt Count 134 L (150-450) k/uL Lymphocytes # (1.0-4.8) k/uL Macrocytosis Marked A PT (10.0-12.5) sec INR (<1.2) Carbon Dioxide (22-30) mmol/L BUN (7-17) mg/dL Calcium (8.4-10.2) mg/dL Magnesium (1.6-2.3) mg/dL TIBC 199 L (228-460) UG/DL % Saturation 78.89 H (12.00-45.00) Transferrin 142.0 L (204.0-354.0) mg/dL Ferritin 499.0 H (10.0-291.0) ng/mL Vitamin B12 1467.0 H (200.0-944.0) pg/mL Crossmatch See Detail 07/26/23 07/26/23 07/26/23 Range/Units 06:36 06:36 06:36 RBC 2.31 L (3.80-5.40) m/uL Hgb 7.4 L (11.4-16.0) gm/dL Hct 23.7 L (34.0-46.0) % MCV 102.7 H (80.0-100.0) fL RDW 22.2 H (11.5-15.5) % Plt Count 128 L (150-450) k/uL Lymphocytes # 0.6 L (1.0-4.8) k/uL Macrocytosis Marked A PT 14.0 H (10.0-12.5) sec INR 1.3 H (<1.2) Carbon Dioxide 31 H (22-30) mmol/L BUN 36 H (7-17) mg/dL Calcium 8.1 L (8.4-10.2) mg/dL Magnesium 1.4 L (1.6-2.3) mg/dL TIBC (228-460) UG/DL % Saturation (12.00-45.00) Transferrin (204.0-354.0) mg/dL Ferritin (10.0-291.0) ng/mL Vitamin B12 (200.0-944.0) pg/mL Crossmatch
--- NOTE | 2023-07-26 16:49 | P.PN ---
Progress Note - Text Progress Note Date: 07/26/23 Chief Complaint: Short of breath This is a pleasant 87-year-old patient who follows with Dr. Ondina Engle. Chronic stable medical condition include atrial fibrillation, essential hypertension, osteoarthritis. 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 with Dr. Arteaga oncologist. She is presented here with worsening shortness of breath. Especially more so in the last 2 days. Decreased energy. Appetite is okay. She had black stool yesterday. Also some black stool about a week ago. She does get Eliquis for A-fib. Does not have any oxygen at home patient in the ER is accompanied by her son Jesus. Denies any edema. July 24: Hemoglobin this morning came back at 5.9. 1 unit of blood ordered. Patient rather tired. Had some more maroon stool overnight and this morning. July 25: Patient yesterday received a unit of blood. Repeat hemoglobin this morning 7.4. EGD with Dr Cade today. Showed some gastric antrum gastritis. Some shortness of breath. Remains on IV Lasix. Active Medications Acetaminophen (Acetaminophen Tab 500 Mg Tab) 500 mg PO Q6HR PRN PRN Reason: Pain Last Admin: 07/26/23 16:29 Dose: 500 mg Acetaminophen (Acetaminophen Tab 500 Mg Tab) 1,000 mg PO BID [facility] Last Admin: 07/26/23 08:37 Dose: 1,000 mg Albuterol/Ipratropium (Ipratropium-Albuterol 3 Ml Neb) 3 ml INHALATION RT-QID [facility] Last Admin: 07/26/23 12:24 Dose: Not Given Atorvastatin Calcium (Atorvastatin 10 Mg Tab) 10 mg PO HS [facility] Last Admin: 07/25/23 21:51 Dose: 10 mg Budesonide (Budesonide 1 Mg/2 Ml Nebu) 1 mg INHALATION RT-BID [facility] Last Admin: 07/26/23 09:11 Dose: Not Given Calcium Carbonate/Glycine (Calcium Carbonate 500 Mg Chewable) 1,000 mg PO Q4HR PRN PRN Reason: Dyspepsia Furosemide (Furosemide 10 Mg/Ml 4 Ml Vial) 40 mg IV Q12HR [facility] Last Admin: 07/26/23 08:37 Dose: 40 mg Lactulose (Lactulose 20 Gm/30 Ml Cup) 20 gm PO DAILY PRN PRN Reason: Constipation Lorazepam (Lorazepam 0.5 Mg Tab) 0.5 mg PO Q6HR PRN PRN Reason: Anxiety Last Admin: 07/25/23 11:50 Dose: 0.5 mg Magnesium Oxide (Magnesium Oxide 400 Mg Tab) 200 mg PO BID [facility] Last Admin: 07/26/23 08:38 Dose: 200 mg Melatonin (Melatonin 3 Mg Tablet) 3 mg PO HS PRN PRN Reason: Insomnia Metoprolol Tartrate (Metoprolol Tartrate 50 Mg Tab) 100 mg PO BID [facility] Last Admin: 07/26/23 08:38 Dose: 100 mg Montelukast Sodium (Montelukast 10 Mg Tab) 10 mg PO HS [facility] Last Admin: 07/25/23 21:50 Dose: 10 mg Naloxone HCl (Naloxone 0.4 Mg/Ml 1 Ml Vial) 0.2 mg IV Q2M PRN PRN Reason: Opioid Reversal Oxybutynin Chloride (Oxybutynin 10 Mg Tab.Er.24) 10 mg PO DAILY [facility] Last Admin: 07/26/23 08:38 Dose: 10 mg Pantoprazole Sodium (Pantoprazole 40 Mg/10 Ml Vial) 40 mg IVP BID [facility] Last Admin: 07/26/23 08:37 Dose: 40 mg Prochlorperazine Maleate (Prochlorperazine 5 Mg Tab) 5 mg PO Q8HR PRN PRN Reason: Nausea And Vomiting Social history: Lives alone. Son lives nearby. Smoked less than a pack a day for 40 years stopped over 20 years ago. Does drink a [place] daily. Physical examination: VITAL SIGNS: 97.9, 64, 18, 98 x 64, 98% on 2 L GENERAL: BMI 20.3,. Reclining in bed a, tired EYES: [Pupils equal. Conjunctiva pale. HEENT: External appearance of nose and ears normal, oral cavity grossly normal. NECK: JVD possibly raised; masses not palpable. HEART: Heart sounds regular; no edema. LUNGS: Respiratory rate increased l decreased breath sounds no wheezing. ABDOMEN: Soft, nontender, liver spleen not palpable, no masses palpable. PSYCH: Alert and oriented x3; mood and affect tired MUSCULOSKELETAL:No Clubbing/cyanosis;muscles-grossly intact. OA INVESTIGATIONS, reviewed in the clinical context: July 25: White count 7.2 hemoglobin 7.4 platelets 128 potassium 4.1 creatinine 0.68 2D echocardiogram: EF 45 to 50%. No wall motion abnormality. Moderate mitral regurgitation. Moderate tricuspid regurgitation. July 24: White count 6.7 hemoglobin 5.9 platelets 137 potassium 4.4 creatinine 0.68 July 24, 2023: White count 6.5 hemoglobin 8.4 platelets 161 sodium 137 potassium 5.8 BUN 45 creatinine 0.54 proBNP [id number] Stool occult blood positive EKG tracing personally reviewed by me-atrial fibrillation. Rate 78. Abnormal T waves in inferior lateral leads Chest x-ray film personally reviewed by me-cardiomegaly. Prominent hilum/pulmonary artery Previous investigations CT chest with contrast [February 2023] right lower lobe superior segment 4.3 cm mass. Additional right hilar enlarged lymph nodes suspicious for metastasis. - Assessment and plan: -Acute CHF exacerbation. Combination of systolic and diastolic dysfunction. EF 45 to 50%.: Slow to respond IV Lasix 40 mg every 12 Telemetry. -Acute COPD exacerbation in a prior smoker DuoNeb 4 times daily. Pulmicort nebulizer 1 mg twice daily -Small cell lung cancer stage III 3 weeks ago received chemotherapy and radiation treatment. Being followed by Dr. Lazaro Arteaga oncology. -Acute GI bleed in a patient is on Eliquis: Slow to respond Eliquis held. Dr. Cade from general surgery consulted as GI services not available in the hospital EGD: Mild gastritis Follow H&H -Acute blood loss anemia from GI bleed 1 unit of blood ordered -Persistent atrial fibrillation, rate controlled Lopressor 100 mg twice daily. Hold Eliquis because of GI bleed -Primary osteoarthritis Tylenol as needed -Urinary incontinence Ditropan XL 10 mg a day -Power of technology teacher: Son Jesus, and daughter Naina -DNR Advance care planning [July 24, 2023] Patient is medical condition overall diagnosis end-of-life care was discussed with the patient present ultrasound. Questions answered. She has decided to proceed with DNR. Time spent about 25 minutes Patient may have benefited from small bowel capsule study. No GI available. And 1 change in management. For now hold off Eliquis. Repeat H&H. Past Medical History Past Medical History: Atrial Fibrillation, Hypertension, Musculoskeletal Disorder Additional Past Medical History / Comment(s): fell August 01 & fx. left hip, didn't know it was fx. @first, A-fib for "years" per pt. History of Any Multi-Drug Resistant Organisms: None Reported Past Surgical History: Appendectomy, Section, Cholecystectomy, Hernia Repair, Hysterectomy, Orthopedic Surgery, Tonsillectomy Additional Past Surgical History / Comment(s): Partial hip replacement Past Anesthesia/Blood Transfusion Reactions: No Reported Reaction Past Psychological History: No Psychological Hx Reported Smoking Status: Former smoker Past Alcohol Use History: None Reported Past Drug Use History: None Reported
[2023-07-27 07:07] LABS: African American GFR (CKD) >90 (>60 ml/min/1.73 sqM); Anion Gap 2 mmol/L; Blood Urea Nitrogen 27 mg/dL (7-17); Calcium 7.8 mg/dL (8.4-10.2); Carbon Dioxide 32 mmol/L (22-30); Chloride 102 mmol/L (98-107); Glucose 96 mg/dL (74-99); Non-African American GFR(CKD) 81 (>60 ml/min/1.73 sqM); Potassium 3.8 mmol/L (3.5-5.1); Sodium 136 mmol/L (137-145)
[2023-07-27 07:23] LABS: Anisocytosis Moderate; Basophils % (A) 0 %; Eosinophils # (A) 0.3 k/uL (0-0.7); Eosinophils % (A) 4 %; HCT 23.2 % (34.0-46.0); HGB 7.2 gm/dL (11.4-16.0); Hypochromasia Moderate; Lymphocytes # (A) 0.6 k/uL (1.0-4.8); Lymphocytes % (A) 10 %; MCH 32.5 pg (25.0-35.0); MCHC 31.1 g/dL (31.0-37.0); MCV 104.4 fL (80.0-100.0); Macrocytosis Marked; Mean Platelet Volume 9.7; Monocytes # (A) 0.4 k/uL (0-1.0); Monocytes % (A) 7 %; Neutrophils # (A) 4.7 k/uL (1.3-7.7); Neutrophils % (A) 77 %; Platelet Count 120 k/uL (150-450); Poikilocytosis Slight; RBC 2.22 m/uL (3.80-5.40); RDW 22.2 % (11.5-15.5); WBC 6.1 k/uL (3.8-10.6)
[2023-07-27] MEDS: FUROSEMIDE 40 MG TAB PO SCH (08:44)
--- NOTE | 2023-07-27 11:46 | P.PN ---
Subjective Progress Note Date: 07/27/23 Consult reason: congestive heart failure History of present illness: History of present illness: This is an 87-year-old female with past medical history of chronic persistent atrial fibrillation, hypertension, hyperlipidemia, small cell lung cancer stage III status post last chemotherapy and radiation 3 weeks [address] follows [address] Dr. Arteaga, remote history of tobacco use and dependence. We have been asked to evaluate the patient for CHF. Patient presented to the hospital due to worsening dyspnea, cough. No fever or chills. Patient is currently s/p 3 doses of IV Lasix with a negative fluid balance. Patient is scheduled for transfusion today. Hypertension Hyperlipidemia EKG atrial fibrillation Echocardiogram performed 07/24/2023 reveals EF 45 to 50% with moderate mitral regurgitation, and tricuspid regurgitation. Right-sided pressures 40 to 45 mmHg. No pericardial effusion. Chest x-ray: Cardiomegaly with perihilar hazy density may reflect mild changes of heart failure. Infiltrates of other etiology not excluded. WBC 6.7, hemoglobin 5.9, platelet count 137. INR 1.8 down from 2.0. Sodium 135, potassium 4.5 initially 5.8. BUN 47 creatinine 0.68. Troponin negative x 1. proBNP 19,400. Stool for occult blood positive. Home cardiac medications: Eliquis 5 mg twice daily, atorvastatin 10 mg at bedtime, Lopressor 100 mg twice daily. 07/25 Patient was fairly comfortable through the night. No new concerns. No shortness of breath at rest. Blood pressure is 117/62, heart rate 60 to 70s. Repeat blood work reveals hemoglobin 7.4. INR is 1.3. Potassium 4.1, creatinine 0.68. She is status post transfusion of 1 unit of packed RBCs. She is scheduled for EGD today. Echocardiogram reveals EF of 45 to 50%. Moderate mitral regurgitation and tricuspid regurgitation. Right-sided pressures 40-45 mmHg. No pericardial effusion. 07/26 Yesterday, patient underwent EGD that revealed antral gastritis. Blood pressure 108/51, heart rate in the 60s and 70s. Repeat hemoglobin is 7.2. Physical examination: Gen: This is a frail-appearing 87-year-old female. VS: reviewed HEENT: Head is atraumatic, normocephalic. Pupils equal, round. Sclerae is anicteric. Conjunctival pale. NECK: Supple. No JVD. LUNGS: Decreased breath sounds. No wheezes or rhonchi. No intercostal retractions. HEART: Regular rate and rhythm. No murmur. ABDOMEN: Soft No tenderness. EXTREMITIES: No pedal edema. No calf tenderness. NEUROLOGICAL: Patient is awake, alert and oriented x3. Assessment: Acute systolic heart failure Persistent atrial fibrillation Acute GI bleed Acute blood loss anemia status post transfusion Lung cancer Plan: Continue patient's home cardiac medications Transition IV Lasix to oral 40 mg daily Resume patient on Eliquis at lower dose of 2.5 mg twice daily once cleared by general surgery Cardiology will sign off this case and follow on an as-needed basis. Please reconsult for any new concerns. Patient may follow-up in the office in one to 2 weeks. Nurse practitioner note has been reviewed, I agree with documented findings and plan of care. Patient was seen and examined. Objective - Vital Signs Vital signs: Vital Signs Temp 97.8 F 07/27/23 03:40 Pulse 67 07/27/23 03:40 Resp 20 07/27/23 03:40 BP 108/61 07/27/23 03:40 Pulse Ox 98 07/27/23 03:40 FiO2 Intake & Output 07/26/23 07/27/23 07/27/23 18:59 06:59 18:59 Intake Total 218 Output Total 1875 Balance -1657 Intake: IV 100 Oral 118 Output: Urine 1875 Other: Voiding Method Indwelling Catheter Indwelling Catheter - Labs CBC & Chem 7: 07/27/23 06:35 07/27/23 06:35 Labs: Abnormal Lab Results - Last 24 Hours (Table) 07/27/23 07/27/23 Range/Units 06:35 06:35 RBC 2.22 L (3.80-5.40) m/uL Hgb 7.2 L (11.4-16.0) gm/dL Hct 23.2 L (34.0-46.0) % MCV 104.4 H (80.0-100.0) fL RDW 22.2 H (11.5-15.5) % Plt Count 120 L (150-450) k/uL Lymphocytes # 0.6 L (1.0-4.8) k/uL Macrocytosis Marked A Sodium 136 L (137-145) mmol/L Carbon Dioxide 32 H (22-30) mmol/L BUN 27 H (7-17) mg/dL Calcium 7.8 L (8.4-10.2) mg/dL
--- NOTE | 2023-07-27 13:02 | P.PN ---
Subjective Progress Note Date: 07/27/23 CHIEF COMPLAINT: Shortness of breath HISTORY OF PRESENT ILLNESS: Patient is status post EGD revealing mild antral gastritis and small hiatal hernia. Patient has had no further reported black stools. She did tolerate diet. No abdominal pain. Vital stable. Hemoglobin stable at 7.2. Cardiology switch patient to oral Lasix PHYSICAL EXAM: VITAL SIGNS: Reviewed. GENERAL: no acute distress. ABDOMEN: Soft. Nondistended. Nontender. ASSESSMENT: 1. Acute GI bleed with melanotic stools. Status post EGD revealing mild antral gastritis and small hiatal hernia 2. A-fib anticoagulated with Eliquis at home 3. History of small cell lung cancer with recent chemo and radiation treatment 3 weeks ago 4. Acute CHF exacerbation 5. Hypomagnesemia received supplement PLAN: -Patient can be discharge from surgical standpoint when medically cleared -Patient can resume Eliquis. Cardiology did decrease the dose -Repeat magnesium level and replace as needed -Continue PPI Physician Signal Operator note has been reviewed by physician. Signing provider agrees with the documented findings, assessment, and plan of care. Objective - Vital Signs Vital signs: Vital Signs Temp 98.5 F 07/27/23 11:47 Pulse 98 07/27/23 11:47 Resp 18 07/27/23 11:47 BP 104/63 07/27/23 11:47 Pulse Ox 98 07/27/23 11:47 FiO2 Intake & Output 07/26/23 07/27/23 07/27/23 18:59 06:59 18:59 Intake Total 218 236 Output Total 1875 650 Balance -1657 -414 Weight 55 kg Intake: IV 100 Oral 118 236 Output: Urine 1875 650 Other: Voiding Method Indwelling Catheter Indwelling Catheter Indwelling Catheter - Labs CBC & Chem 7: 07/27/23 06:35 07/27/23 06:35 Labs: Abnormal Lab Results - Last 24 Hours (Table) 07/27/23 07/27/23 Range/Units 06:35 06:35 RBC 2.22 L (3.80-5.40) m/uL Hgb 7.2 L (11.4-16.0) gm/dL Hct 23.2 L (34.0-46.0) % MCV 104.4 H (80.0-100.0) fL RDW 22.2 H (11.5-15.5) % Plt Count 120 L (150-450) k/uL Lymphocytes # 0.6 L (1.0-4.8) k/uL Macrocytosis Marked A Sodium 136 L (137-145) mmol/L Carbon Dioxide 32 H (22-30) mmol/L BUN 27 H (7-17) mg/dL Calcium 7.8 L (8.4-10.2) mg/dL
[2023-07-27] MEDS: SODIUM FERRIC GLUCONAT-SUCROSE 125 MG in SODIUM CHLORIDE 0.9% 100 ML IVPB SCH (15:02)
--- NOTE | 2023-07-27 15:23 | P.PN ---
Progress Note - Text Progress Note Date: 07/27/23 Chief Complaint: Short of breath This is a pleasant 87-year-old patient who follows with Dr. Ondina Engle. Chronic stable medical condition include atrial fibrillation, essential hypertension, osteoarthritis. 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 with Dr. Arteaga oncologist. She is presented here with worsening shortness of breath. Especially more so in the last 2 days. Decreased energy. Appetite is okay. She had black stool yesterday. Also some black stool about a week ago. She does get Eliquis for A-fib. Does not have any oxygen at home patient in the ER is accompanied by her son Jesus. Denies any edema. July 24: Hemoglobin this morning came back at 5.9. 1 unit of blood ordered. Patient rather tired. Had some more maroon stool overnight and this morning. July 25: Patient yesterday received a unit of blood. Repeat hemoglobin this morning 7.4. EGD with Dr Cade today. Showed some gastric antrum gastritis. Some shortness of breath. Remains on IV Lasix. July 26: Up in a recliner. Feeling a bit better. Son at the bedside. No further intervention per surgery. Room Eliquis from tomorrow. The bleeding will cut back on the dose. Discussed with son at the bedside. Probably can be discharged tomorrow. Active Medications Acetaminophen (Acetaminophen Tab 500 Mg Tab) 1,000 mg PO BID [facility] Last Admin: 07/27/23 08:39 Dose: 1,000 mg Acetaminophen (Acetaminophen Tab 325 Mg Tab) 650 mg PO Q6HR PRN PRN Reason: Pain Albuterol/Ipratropium (Ipratropium-Albuterol 3 Ml Neb) 3 ml INHALATION RT-QID [facility] Last Admin: 07/27/23 12:50 Dose: Not Given Apixaban (Apixaban 2.5 Mg Tablet) 2.5 mg PO BID [facility]; Protocol Atorvastatin Calcium (Atorvastatin 10 Mg Tab) 10 mg PO HS [facility] Last Admin: 07/26/23 20:40 Dose: 10 mg Budesonide (Budesonide 1 Mg/2 Ml Nebu) 1 mg INHALATION RT-BID [facility] Last Admin: 07/27/23 09:25 Dose: Not Given Calcium Carbonate/Glycine (Calcium Carbonate 500 Mg Chewable) 1,000 mg PO Q4HR PRN PRN Reason: Dyspepsia Furosemide (Furosemide 40 Mg Tab) 40 mg PO DAILY [facility] Last Admin: 07/27/23 08:44 Dose: 40 mg Ferric Sodium Gluconate 125 mg (/ Sodium Chloride) 110 mls @ 100 mls/hr IVPB DAILY [facility] Stop: 07/29/23 10:05 Last Admin: 07/27/23 15:02 Dose: 100 mls/hr Lactulose (Lactulose 20 Gm/30 Ml Cup) 20 gm PO DAILY PRN PRN Reason: Constipation Lorazepam (Lorazepam 0.5 Mg Tab) 0.5 mg PO Q6HR PRN PRN Reason: Anxiety Last Admin: 07/25/23 11:50 Dose: 0.5 mg Magnesium Oxide (Magnesium Oxide 400 Mg Tab) 200 mg PO BID [facility] Last Admin: 07/27/23 08:40 Dose: 200 mg Melatonin (Melatonin 3 Mg Tablet) 3 mg PO HS PRN PRN Reason: Insomnia Metoprolol Tartrate (Metoprolol Tartrate 50 Mg Tab) 100 mg PO BID [facility] Last Admin: 07/27/23 08:41 Dose: 100 mg Montelukast Sodium (Montelukast 10 Mg Tab) 10 mg PO HS [facility] Last Admin: 07/26/23 20:40 Dose: 10 mg Naloxone HCl (Naloxone 0.4 Mg/Ml 1 Ml Vial) 0.2 mg IV Q2M PRN PRN Reason: Opioid Reversal Oxybutynin Chloride (Oxybutynin 10 Mg Tab.Er.24) 10 mg PO DAILY [facility] Last Admin: 07/27/23 08:41 Dose: 10 mg Pantoprazole Sodium (Pantoprazole 40 Mg/10 Ml Vial) 40 mg IVP BID [facility] Last Admin: 07/27/23 08:41 Dose: 40 mg Prochlorperazine Maleate (Prochlorperazine 5 Mg Tab) 5 mg PO Q8HR PRN PRN Reason: Nausea And Vomiting Social history: Lives alone. Son lives nearby. Smoked less than a pack a day for 40 years stopped over 20 years ago. Does drink a [place] daily. Physical examination: VITAL SIGNS: 98.2, 85, 18, 100/62, 98% room air GENERAL: Reclining in bed a, tired EYES: [Pupils equal. Conjunctiva pale. HEENT: External appearance of nose and ears normal, oral cavity grossly normal. NECK: JVD possibly raised; masses not palpable. HEART: Heart sounds regular; no edema. LUNGS: Respiratory rate increased l decreased breath sounds no wheezing. ABDOMEN: Soft, nontender, liver spleen not palpable, no masses palpable. PSYCH: Alert and oriented x3; mood and affect tired MUSCULOSKELETAL:No Clubbing/cyanosis;muscles-grossly intact. OA INVESTIGATIONS, reviewed in the clinical context: July 26: White count 6.1 hemoglobin 7.2 potassium 3.8 creatinine 0.67 July 25: White count 7.2 hemoglobin 7.4 platelets 128 potassium 4.1 creatinine 0.68 2D echocardiogram: EF 45 to 50%. No wall motion abnormality. Moderate mitral regurgitation. Moderate tricuspid regurgitation. July 24: White count 6.7 hemoglobin 5.9 platelets 137 potassium 4.4 creatinine 0.68 July 24, 2023: White count 6.5 hemoglobin 8.4 platelets 161 sodium 137 potassium 5.8 BUN 45 creatinine 0.54 proBNP 94484 Stool occult blood positive EKG tracing personally reviewed by me-atrial fibrillation. Rate 78. Abnormal T waves in inferior lateral leads Chest x-ray film personally reviewed by me-cardiomegaly. Prominent hilum/pulmonary artery Previous investigations CT chest with contrast [February 2023] right lower lobe superior segment 4.3 cm mass. Additional right hilar enlarged lymph nodes suspicious for metastasis. - Assessment and plan: -Acute CHF exacerbation. Combination of systolic and diastolic dysfunction. EF 45 to 50%.: Better IV Lasix 40 mg every 12. Changed over to oral Lasix Telemetry. -Acute COPD exacerbation in a prior smoker: Better DuoNeb 4 times daily. Pulmicort nebulizer 1 mg twice daily -Small cell lung cancer stage III 3 weeks ago received chemotherapy and radiation treatment. Being followed by Dr. Lazaro Arteaga oncology. -Acute GI bleed in a patient is on Eliquis: Eliquis held. Dr. Cade from general surgery consulted as GI services not available in the hospital EGD: Mild gastritis Cleared by Dr Cade for discharge Because of GI bleed Eliquis resumed at 2.5 mg twice daily -Acute blood loss anemia from GI bleed 1 unit of blood ordered -Persistent atrial fibrillation, rate controlled Lopressor 100 mg twice daily. 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 Questions answered. She has decided to proceed with DNR. Time spent about 25 minutes Cleared by surgery and cardiology. Plan for discharge tomorrow. Discussed with son at the bedside. Patient's daughter will be living at home with her. Past Medical History Past Medical History: Atrial Fibrillation, Hypertension, Musculoskeletal Disorder Additional Past Medical History / Comment(s): August 01 & fx. left hip, didn't know it was fx. @first, A-fib for "years" per pt. History of Any Multi-Drug Resistant Organisms: None Reported Past Surgical History: Appendectomy, Section, Cholecystectomy, Hernia Repair, Hysterectomy, Orthopedic Surgery, Tonsillectomy Additional Past Surgical History / Comment(s): Partial hip replacement Past Anesthesia/Blood Transfusion Reactions: No Reported Reaction Past Psychological History: No Psychological Hx Reported Smoking Status: Former smoker Past Alcohol Use History: None Reported Past Drug Use History: None Reported
--- NOTE | 2023-07-27 19:59 | P.PN ---
Subjective Progress Note Date: 07/27/23 At todays visit patient is resting comfortably in bed eating lunch, son at bedside. Patient is reporting she is feeling improved. Rectal bleeding has subsided. EGD negative for acute bleed. Hemoglobin 7.2 today Objective - Vital Signs Vital signs: Vital Signs Temp 98.5 F 07/27/23 11:47 Pulse 98 07/27/23 11:47 Resp 18 07/27/23 11:47 BP 104/63 07/27/23 11:47 Pulse Ox 98 07/27/23 11:47 FiO2 Intake & Output 07/26/23 07/27/23 07/27/23 18:59 06:59 18:59 Intake Total 218 354 Output Total 1875 650 Balance -6097 -499 Weight 55 kg Intake: IV 100 Oral 118 354 Output: Urine 1875 650 Other: Voiding Method Indwelling Catheter Indwelling Catheter Indwelling Catheter - Constitutional General appearance: Present: average body habitus, no acute distress - EENT Eyes: Present: anicteric sclerae, EOMI ENT: Present: hearing grossly normal - Respiratory Details: breathing is even and unlabored - Cardiovascular Details: skin warm and dry - Gastrointestinal General gastrointestinal: Present: soft. Absent: tenderness - Integumentary Integumentary: Present: pale. Absent: cyanotic - Psychiatric Psychiatric: Present: A&O x's 3 - Labs CBC & Chem 7: 07/27/23 06:35 07/27/23 06:35 Labs: Abnormal Lab Results - Last 24 Hours (Table) 07/27/23 07/27/23 Range/Units 06:35 06:35 RBC 2.22 L (3.80-5.40) m/uL Hgb 7.2 L (11.4-16.0) gm/dL Hct 23.2 L (34.0-46.0) % MCV 104.4 H (80.0-100.0) fL RDW 22.2 H (11.5-15.5) % Plt Count 120 L (150-450) k/uL Lymphocytes # 0.6 L (1.0-4.8) k/uL Macrocytosis Marked A Sodium 136 L (137-145) mmol/L Carbon Dioxide 32 H (22-30) mmol/L BUN 27 H (7-17) mg/dL Calcium 7.8 L (8.4-10.2) mg/dL Assessment and Plan (1) Anemia Current Visit: Yes Status: Acute Priority: High Code(s): D64.9 - ANEMIA, UNSPECIFIED SNOMED Code(s): 053954634 (2) Congestive heart failure Current Visit: Yes Status: Acute Priority: High Code(s): I50.9 - HEART FAILURE, UNSPECIFIED SNOMED Code(s): 83693680 (3) Non-small cell lung cancer (NSCLC) Current Visit: Yes Status: Acute Priority: Medium Code(s): C34.90 - MALIGNANT NEOPLASM OF UNSP PART OF UNSP BRONCHUS OR LUNG SNOMED Code(s): 037078331 Plan: Stage III non-small cell lung cancer -Status post 5 cycles of chemo, additional chemo was held due to poor tolerance. She completed radiation approximately 06/24/2023. -Plan is for follow-up imaging in August to assess treatment. -Patient was seen just about 2 weeks ago in the office and was not feeling well, though she did not have the symptoms she is presenting with. Macrocytic anemia -Hemoglobin in the office about 2 weeks ago was 11 -Drop in hemoglobin is secondary to GI bleeding. -Surgery following. S/p EGD on 07/25, showing Mild antral gastritis and small hiatal hernia. No active bleeding noted -Eliquis for A-fib has been held. Would recommend a cardiology consult for recommendations regarding anticoagulation for atrial fibrillation if no source of acute bleed is found on endoscopy and able to be treated -Anemia workup ordered on pretransfusion blood. However, appears that iron st udies were ran on blood sample after blood transfusion, showing iron saturation of 78%, and ferritin 499. No vitamin B12 or folate deficiency noted. Due to GI bleeding and persisting anemia, despite iron studies, that are likely elevated from recent transfusion, will start parenteral iron -S/p 1 unit PRBCs since admission. Hgb today 7.2. Blood in stool now resolved -Transfuse for hemoglobin less than 7 or if patient is symptomatic. Continue to monitor CBC CHF -Cardiology following, Defer mgmt of the same Doctor attests: I performed a history and physical examination of this patient, developed impression and plan of care. Discussed with dictator. I agree with dictators note, documented as a scribe.
[2023-07-27] MEDS: APIXABAN 2.5 MG TABLET PO SCH (20:55)
[2023-07-27] MEDS: ACETAMINOPHEN TAB 325 MG TAB PO PRN (20:55)
[2023-07-28 04:34] VITALS: RESP 16
[2023-07-28 08:46] VITALS: BP 107/55; PULSE 99; TEMP 97.5
[2023-07-28 09:21] LABS: Anisocytosis Moderate; Basophils % (A) 0 %; Eosinophils # (A) 0.2 k/uL (0-0.7); Eosinophils % (A) 3 %; HGB 7.6 gm/dL (11.4-16.0); Hypochromasia Marked; Lymphocytes # (A) 0.6 k/uL (1.0-4.8); Lymphocytes % (A) 10 %; MCH 32.8 pg (25.0-35.0); MCHC 30.6 g/dL (31.0-37.0); MCV 107.3 fL (80.0-100.0); Macrocytosis Marked; Mean Platelet Volume 9.1; Monocytes # (A) 0.5 k/uL (0-1.0); Monocytes % (A) 7 %; Neutrophils # (A) 4.8 k/uL (1.3-7.7); Neutrophils % (A) 76 %; Platelet Count 145 k/uL (150-450); Poikilocytosis Slight; RBC 2.32 m/uL (3.80-5.40); RDW 22.7 % (11.5-15.5); WBC 6.4 k/uL (3.8-10.6)
[2023-07-28 10:18] LABS: Anisocytosis (M) Present; Hypochromasia (M) Present; Polychromasia Present
== END 2023-07-28 11:26 | disposition home health service (06) | DRG 291 ==
LOC: EC 12:11 → 3SCARD 14:41
PROVIDERS: ADMIT Hospitalist; ATTEND Hospitalist
PROC: 30233N1 Transfusion of Nonautologous Red Blood Cells into Peripheral Vein, Percutaneous Approach (ICD-10-PCS; 2023-07-25)
PROC: 0DB78ZX Excision of Stomach, Pylorus, Via Natural or Artificial Opening Endoscopic, Diagnostic (ICD-10-PCS; principal; 2023-07-26 07:30)
DX: I11.0 Hypertensive heart disease with heart failure (principal); I50.21 Acute systolic (congestive) heart failure; K29.51 Unspecified chronic gastritis with bleeding; J44.1 Chronic obstructive pulmonary disease with (acute) exacerbation; I48.19 Other persistent atrial fibrillation; C34.31 Malignant neoplasm of lower lobe, right bronchus or lung; D62 Acute posthemorrhagic anemia; Z66 Do not resuscitate; I95.9 Hypotension, unspecified; R54 Age-related physical debility; Z79.01 Long term (current) use of anticoagulants; D53.9 Nutritional anemia, unspecified; I08.1 Rheumatic disorders of both mitral and tricuspid valves; K44.9 Diaphragmatic hernia without obstruction or gangrene; M19.91 Primary osteoarthritis, unspecified site; E83.42 Hypomagnesemia; E78.5 Hyperlipidemia, unspecified; E87.5 Hyperkalemia; R32 Unspecified urinary incontinence; Z96.642 Presence of left artificial hip joint; Z87.891 Personal history of nicotine dependence; Z92.21 Personal history of antineoplastic chemotherapy; Z92.3 Personal history of irradiation; Z79.51 Long term (current) use of inhaled steroids; Z91.81 History of falling; Z79.899 Other long term (current) drug therapy; Z88.0 Allergy status to penicillin; Z88.2 Allergy status to sulfonamides
CPT/HCPCS: 36415; 43239; 51702; 71046; 80048; 80053; 82272; 82607; 82728; 82746; 83540; 83550; 83605; 83735; 83880; 83921; 84484; 85025; 85027; 85384; 85610; 85730; 86850; 86900; 86901; 86920; 88305; 93005; 93306; 94640; 94760; 96365; 96366; 96375; 96376; 99285

== ENCOUNTER → 2023-09-11 | Outpatient (CLI) | payer MEDICARE ==
[2023-09-11 14:49] LABS: African American GFR (CKD) >90 (>60 ml/min/1.73 sqM); Blood Urea Nitrogen 21 mg/dL (7-17); Non-African American GFR(CKD) 89 (>60 ml/min/1.73 sqM)
--- NOTE | 2023-09-17 09:57 | CT ---
EXAMINATION TYPE: CT chest w con DATE OF EXAM: 09/11/2023 COMPARISON: 02/21/2023 HISTORY: Lung Ca. CT DLP: 182.8 mGycm, Automated exposure control for dose reduction was used. CONTRAST: Performed injected with 100ml mL of Isovue 300. TECHNIQUE: Axial images were obtained at 5 mm thick sections. Reconstructed images are reviewed on [employer] computer in the coronal plane. FINDINGS: Portion of the thyroid visualized is normal. There is a 3.0 cm mass posterior right mid lung. There is a large consolidation in the mid to upper r ight lung measuring 4.8 x 4.4 cm. There is a 0.9 cm nodule posterior right lung. There is an area of pneumonitis in the anterior right lung measuring 1.5 cm. There is a 0.9 cm peripheral left lower lung field increased density. Series 3 image 34. Some streak opacities within the lingula extending towards the mediastinal border. This me asures 2.4 cm adjacent to the left heart border some streak opacities in the posterior right lung bas e. There is prominent right hilar adenopathy measuring 1.1 cm. This is partially encasing the lower rig ht main pulmonary artery but is diminished from comparison. Pretracheal lymph node remains present cu rrently measuring 1.1 cm diminished from 1.4 cm. The ascending aorta diameter at the level of the main pulmonary artery is 3.7 cm. The main pulmonary artery diameter at the bifurcation is 3.[address] sections are obtained through the upper abdomen. Multiple calcified granuloma are scattere d throughout the spleen IMPRESSION: 1. Posterior right lung mass diminished in size from 4.1 to 3.0 cm. 2. Diminished size right hilar adenopathy. Mediastinal adenopathy is diminished. 3. Interval development of a small right pleural effusion. 4. Interval development of posterior right mid lung infiltrate with a few scattered densities bilater ally in the upper lung cyr. Metastasis is not excluded
== END | disposition home or self-care (01) ==
LOC: RADCTMAIN 13:58
PROVIDERS: ATTEND Internal Medicine Hematology & Oncology
DX: C34.31 Malignant neoplasm of lower lobe, right bronchus or lung (principal); D69.59 Other secondary thrombocytopenia; I48.91 Unspecified atrial fibrillation; M12.9 Arthropathy, unspecified; J90 Pleural effusion, not elsewhere classified; J98.4 Other disorders of lung; R91.8 Other nonspecific abnormal finding of lung field; R59.0 Localized enlarged lymph nodes; I10 Essential (primary) hypertension
CPT/HCPCS: 82565; 84520; 71260; 36415; Q9967

== ENCOUNTER → 2024-01-15 | Outpatient (CLI) | payer MEDICARE ==
[2024-01-15 10:32] LABS: African American GFR (CKD) >90 (>60 ml/min/1.73 sqM); Blood Urea Nitrogen 18 mg/dL (7-17); Non-African American GFR(CKD) 83 (>60 ml/min/1.73 sqM)
--- NOTE | 2024-01-15 11:42 | CT ---
EXAMINATION TYPE: CT chest w con CT DLP: 218.90 mGycm, Automated exposure control for dose reduction was used. DATE OF EXAM: 01/15/2024 11:08 AM COMPARISON: CT chest 09/11/2023, 02/21/2023 CLINICAL INDICATION:Female, 88 years old with history of C34.31 lung ca; PHH, LUNG CANCER TECHNIQUE: Multiple axial images were obtained through the chest following the administration of 100 cc of Isovue 300. . Coronal and sagittal reformats reviewed. FINDINGS: LUNGS/ PLEURA: No pneumothorax. Small right pleural effusion. Mild centrilobular emphysematous bueno es. Linear scarring within the lingula. Similar nodular opacity within the posterior aspect of the ri ght upper lobe measuring 7 mm, previously 9 mm. Similar focal opacity within the anterior right upper lobe measuring 1.5 cm, previously 1.5 cm. More consolidative appearance of masslike opacity with dee e air bronchograms within the posterior right mid lung (series 4, 26). Previously seen posterior righ t midlung mass is not well-visualized on today's exam with some linear opacities in this region. AIRWAY: Patent and unremarkable.. HEART: The heart is mildly increased in size.. No pericardial effusion. Mild coronary artery calcific ations. MEDIASTINUM: Marginal decrease in soft tissue thickening within the right pulmonary hilum. VASCULATURE: No aortic aneurysm. Atherosclerotic calcification of the aorta and its branches. The ma in pulmonary artery measuring up to 3.3 cm suggesting pulmonary artery hypertension. No pulmonary anita ling defect to suggest emboli. MUSCULOSKELETAL: No acute osseous abnormalities. No aggressive osseous lesion. Increased thoracic kyp hosis. SOFT TISSUES/LYMPH NODES: Unremarkable. LOWER NECK: No significant findings. UPPER ABDOMEN: Multiple calcified granulomas within the spleen. Calcification identified again within the left adrenal gland. Postcholecystectomy changes. IMPRESSION: 1. Findings favored to represent positive response to therapy with previously seen right posterior jyoti ng mass no longer well-visualized and moderate decrease in right pulmonary hilar soft tissue thickeni ng. More consolidative appearance of right posterior midlung consolidative opacity. May represent pos tobstructive atelectasis/infection with residual malignancy not excluded. 2. Few similar right upper lung pulmonary nodular opacities. No new pulmonary nodules identified. 3. Small right pleural effusion. [facility], , 01/15/2024 11:40 AM
== END | disposition home or self-care (01) ==
LOC: RADCTMAIN 09:56
PROVIDERS: ATTEND Internal Medicine Hematology & Oncology
DX: C34.31 Malignant neoplasm of lower lobe, right bronchus or lung
CPT/HCPCS: 36415; 71260; 82565; 84520